=== PATIENT | female | born 1935 | race Caucasian/White ===

== ENCOUNTER 2018-10-14 17:46 | Inpatient (IN) | payer MEDICAID ==
[~2018-10-14] VITALS: Ht 160 cm; Wt 52.4 kg
[2018-10-14] MEDS ORDERED: LISINOPRIL20 MG ORAL (18:05)
--- NOTE | 2018-10-14 18:09 | NUR ---
ED Nurse Note: Pt wheeled in from home due to fracture on R hip. Pt fell this morning at home around 0800 while trying to get out of bed. Daughter stated she fell dizzy and fell. No head injury. No KO. Pain only with weight bearing. BP 176/74 tejinder, ERMD aware. Pt speaks Welsh. Will cont to monitor.
--- NOTE | 2018-10-14 18:25 | Emergency Room Report ---
History of Present Illness General Chief Complaint: Lower Extremity Injury Source: Family Member Present Illness HPI Patient fell yesterday. According to the daughter she's been dizzy on occasion. Since that time she's been unable to ambulate. The daughter took her to urgent care and they took an x-ray. They said that she had a small fracture of her hip. The daughter brought the patient to our facility here. The patient doesn't communicate and has dementia. The daughter denies hypertension, diabetes, heart disease or taking any medication at this time. Allergies: Coded Allergies: No Known Allergies (Unverified , 10/14/18) Patient History Limited by: medical condition Past Medical History: see triage record Social History: Denies: smoking Social History Narrative lives with daughter Last Menstrual Period: na Reviewed Nursing Documentation: PMH: Agreed; PSxH: Agreed Nursing Documentation-PMH Past Medical History: No History, Except For Hx Hypertension: Yes Review of Systems All Other Systems: limited Physical Exam Vital Signs Date Time Temp Pulse Resp B/P (MAP) Pulse Ox O2 Delivery O2 Flow Rate FiO2 10/14/18 18:00 98.1 85 16 149/86 98 Room Air Sp02 EP Interpretation: reviewed, normal General Appearance: no apparent distress, alert, other - Not speaking Head: normocephalic, atraumatic Eyes: bilateral eye normal inspection, bilateral eye PERRL, bilateral eye EOMI ENT: moist mucus membranes Neck: supple Respiratory: lungs clear, normal breath sounds Cardiovascular #1: regular rate, rhythm Cardiovascular #2: 2+ radial (R), 2+ dorsalis pedis (R) Gastrointestinal: non tender, soft, decreased bowel sounds Musculoskeletal: back normal, pelvis stable, tender - PROM R hip Neurologic: alert, DTRs symmetric, other - not communicate Psychiatric: depressed affect Skin: no rash, warm/dry Medical Decision Making Diagnostic Impression: Primary Impression: Fracture, intertrochanteric, right femur Qualified Codes: S72.144A - Nondisplaced intertrochanteric fracture of right femur, initial encounter for closed fracture ER Course Patient presents post fall yesterday with outside x-rays which reveal a right intertrochanteric fracture. Patient needs preoperative evaluation. Also I recommended analgesia. The daughter refuses analgesia at this time and also states that she is against having surgery. I stated that she would discuss this further with the admitting physician and also the orthopedic doctor. EKG without injury. Chest x-ray no infiltrates. Labs unremarkable. X-rays reviewed from outside facility. Intratrochanteric fracture with angulation. Daughter still refuses analgesia. Discussed that surgery would help her mother he will more quickly. She is still resistant to this idea. Patient admitted to the hospital for orthopedic evaluation and possibly surgery. Laboratory Tests Test 10/14/18 18:30 White Blood Count 10.3 K/UL (4.8-10.8) Red Blood Count 3.65 M/UL (4.20-5.40) L Hemoglobin 10.4 G/DL (12.0-16.0) L Hematocrit 31.3 % (37.0-47.0) L Mean Corpuscular Volume 86 FL (80-99) Mean Corpuscular Hemoglobin 28.4 PG (27.0-31.0) Mean Corpuscular Hemoglobin Concent 33.1 G/DL (32.0-36.0) Red Cell Distribution Width 13.1 % (11.6-14.8) Platelet Count 245 K/UL (150-450) Mean Platelet Volume 6.2 FL (6.5-10.1) L Neutrophils (%) (Auto) 87.2 % (45.0-75.0) H Lymphocytes (%) (Auto) 7.2 % (20.0-45.0) L Monocytes (%) (Auto) 5.3 % (1.0-10.0) Eosinophils (%) (Auto) 0.0 % (0.0-3.0) Basophils (%) (Auto) 0.3 % (0.0-2.0) Prothrombin Time 10.3 SEC (9.30-11.50) Prothrombin Time INR 1.0 (0.9-1.1) PTT 25 SEC (23-33) Sodium Level 142 MMOL/L (136-145) Potassium Level 4.4 MMOL/L (3.5-5.1) Chloride Level 104 MMOL/L (98-107) Carbon Dioxide Level 25 MMOL/L (21-32) Anion Gap 14 mmol/L (5-15) Blood Urea Nitrogen 25 mg/dL (7-18) H Creatinine 1.3 MG/DL (0.55-1.30) Estimate Glomerular Filtration Rate mL/min (>60) Glucose Level 134 MG/DL (74-106) H Calcium Level 9.1 MG/DL (8.5-10.1) Total Bilirubin 0.8 MG/DL (0.2-1.0) Aspartate Amino Transferase (AST) 19 U/L (15-37) Alanine Aminotransferase (ALT) 21 U/L (12-78) Alkaline Phosphatase 95 U/L (46-116) Total Protein 7.1 G/DL (6.4-8.2) Albumin 3.3 G/DL (3.4-5.0) L Globulin 3.8 g/dL Albumin/Globulin Ratio 0.9 (1.0-2.7) L EKG Diagnostic Results Rate: normal Rhythm: NSR ST Segments: no acute changes Rhythm Strip Diag. Results EP Interpretation: yes Rhythm: NSR, no PVC's, no ectopy Chest X-Ray Diagnostic Results Chest X-Ray Diagnostic Results : Chest X-Ray Ordered: Yes # of Views/Limited/Complete: 1 View Indication: Other EP Interpretation: Yes Interpretation: no consolidation, no effusion, no pneumothorax Impression: No acute disease Electronically Signed by: Electronically signed by Jaquan Collier MD Other X-Ray Diagnostic Results Other X-Ray Diagnostic Results : X-Ray ordered: pelvis and R femur (proximal) - outside films # of Views/Limited Vs Complete: 4 View Indication: Pain Interpretation: no soft tissue swelling, other - IT fx and angulation Impression: Other Electronically Signed by: Electronically signed by Jaquan Collier MD Last Vital Signs Date Time Temp Pulse Resp B/P (MAP) Pulse Ox O2 Delivery O2 Flow Rate FiO2 10/14/18 22:44 Room Air 10/14/18 18:00 98.1 85 16 149/86 98 Status: improved Disposition: ADMITTED INPATIENT Condition: Serious Jauqan Collier MD Oct 14, 2018 18:25
[2018-10-14] MEDS: Sodium Chloride 550 ML IV SCH ×2 (18:39→21:55)
[2018-10-14 18:53] LABS: ANION GAP 14 mmol/L (5-15); BLOOD UREA NITROGEN 25 mg/dL (7-18); CALCIUM 9.1 MG/DL (8.5-10.1); CARBON DIOXIDE 25 MMOL/L (21-32); CHLORIDE 104 MMOL/L (98-107); CREATININE 1.3 MG/DL (0.55-1.30); POTASSIUM 4.4 MMOL/L (3.5-5.1); SODIUM 142 MMOL/L (136-145)
--- NOTE | 2018-10-14 18:55 | NUR ---
ED Nurse Note: Pt refused to produce urine at this time, denied striaght cath, Purewick applied and on suction setting.
[2018-10-14 18:58] LABS: ALANINE AMINOTRANSFERASE 21 U/L (12-78); ALBUMIN 3.3 G/DL (3.4-5.0); ALBUMIN/GLOBULIN RATIO 0.9 (1.0-2.7); ALKALINE PHOSPHATASE 95 U/L (46-116); ASPARTATE AMINO TRANSFERASE 19 U/L (15-37); BILIRUBIN,TOTAL 0.8 MG/DL (0.2-1.0)
[2018-10-14 18:59] LABS: HEMATOCRIT 31.3 % (37.0-47.0); HEMOGLOBIN 10.4 G/DL (12.0-16.0); MEAN CORPUSCULAR VOLUME 86 FL (80-99); PLATELET COUNT 245 K/UL (150-450); RED BLOOD COUNT 3.65 M/UL (4.20-5.40); RED CELL DISTRIBUTION WIDTH 13.1 % (11.6-14.8); WHITE BLOOD COUNT 10.3 K/UL (4.8-10.8)
[2018-10-14 19:05] LABS: BASOPHILS % (AUTO) 0.3 % (0.0-2.0); LYMPHOCYTES % (AUTO) 7.2 % (20.0-45.0); MONOCYTES % (AUTO) 5.3 % (1.0-10.0); NEUTROPHILS % (AUTO) 87.2 % (45.0-75.0)
--- NOTE | 2018-10-14 21:45 | NUR ---
TRANSFER TO FLOOR: Patient transferred to Med Surg 301-2 as ordered, per MD Deon. Report given to CASSANDRA Ward. Patient in stable condition. Belongings list completed with receiving RN.
[2018-10-14] MEDS ORDERED: Morphine Sulfate 2mg/ml Inj(IV/IM USE ONLY) IVP PRN (22:00)
--- NOTE | 2018-10-14 22:05 | NUR ---
Received pt from ED. In stable condition. Complains of pain - grimacing, moaning-at the right hip which is fractured. Pt is Liberian speaking only. Bed is locked in lowest position, side rails x2. Bed alarm on and call light within reach.
[2018-10-14] MEDS: Enoxaparin 30mg Inj SUBQ SCH (22:33)
[2018-10-14] MEDS: Docusate 100mg cap ORAL SCH (22:33)
[2018-10-15] VITALS: BP 158/91
--- NOTE | 2018-10-15 | NUR ---
Nurse Note: PT removed IV from arm and disrobed herself. Remind pt to not cross legs- placed pillow between her knees as a reminder. Will continue to monitor.
[2018-10-15] MEDS: Sodium Chloride 550 ML IV SCH ×4 (01:35→12:35)
[2018-10-15 04:00] VITALS: BP 182/91
[2018-10-15 06:39] LABS: BASOPHILS % (AUTO) 0.3 % (0.0-2.0); EOSINOPHILS % (AUTO) 0.1 % (0.0-3.0); HEMATOCRIT 29.4 % (37.0-47.0); HEMOGLOBIN 9.6 G/DL (12.0-16.0); LYMPHOCYTES % (AUTO) 12.1 % (20.0-45.0); MEAN CORPUSCULAR VOLUME 86 FL (80-99); NEUTROPHILS % (AUTO) 78.5 % (45.0-75.0); PLATELET COUNT 236 K/UL (150-450); RED BLOOD COUNT 3.42 M/UL (4.20-5.40); RED CELL DISTRIBUTION WIDTH 13.1 % (11.6-14.8); WHITE BLOOD COUNT 7.6 K/UL (4.8-10.8)
[2018-10-15 07:08] LABS: ALANINE AMINOTRANSFERASE 16 U/L (12-78); ALBUMIN/GLOBULIN RATIO 0.8 (1.0-2.7); ALKALINE PHOSPHATASE 80 U/L (46-116); ANION GAP 10 mmol/L (5-15); ASPARTATE AMINO TRANSFERASE 18 U/L (15-37); BILIRUBIN,TOTAL 1.1 MG/DL (0.2-1.0); BLOOD UREA NITROGEN 23 mg/dL (7-18); CALCIUM 8.6 MG/DL (8.5-10.1); CARBON DIOXIDE 28 MMOL/L (21-32); CHLORIDE 105 MMOL/L (98-107); CHOLESTEROL 136 MG/DL (< 200); CREATININE 1.2 MG/DL (0.55-1.30); HDL CHOLESTEROL 48 MG/DL (40-60); SODIUM 143 MMOL/L (136-145); TRIGLYCERIDES 79 MG/DL (30-150)
[2018-10-15 07:09] LABS: BILIRUBIN,DIRECT 0.2 MG/DL (0.0-0.3)
--- NOTE | 2018-10-15 07:37 | NUR ---
HAND-OFF: Report given to Samra TRUJILLO.
--- NOTE | 2018-10-15 07:38 | NUR ---
NURSE NOTES: Pt received awake eating breakfast. Calm upon this writing . No facial grimace of pain . Current plan of care will be followed
[2018-10-15 08:00] VITALS: BP 191/90
[2018-10-15] MEDS: Pantoprazole Inj IV SCH ×2 (09:00→10:00)
[2018-10-15] MEDS: Docusate 100mg cap ORAL SCH ×3 (09:00→21:45)
--- NOTE | 2018-10-15 09:00 | NUR ---
NURSE NOTES: Family at bedside. Requested that database report writer speak to case management is regards to what time surgery will take place. Family made aware that consult was put in by charge nurse for Dr. Contreras. Upon this writing Dr. Warner has not returned call to facility. Pt remains in stable condition, no facial grimace of pain. Dr. Chavarria here talking to pt
--- NOTE | 2018-10-15 10:20 | NUR ---
NURSE NOTES: Pt currently sleeping. Family is at bedside answering questions for pt due to language barrier. Pt is relaxed does not appear to be in pain, daughter states she is okay. Assisted with bed alvarez earlier in shift. Urinated x one .
--- NOTE | 2018-10-15 11:32 | Diagnostic Imaging Report ---
Indication: Chest pain Technique: One view of the chest Comparison: none Findings: Lungs and pleural spaces are clear. The heart size is normal. The aorta is elongated tortuous and calcified. Heart size is upper limits normal. There may be a small hiatal hernia Impression: No acute process. Findings as noted
[2018-10-15 12:00] VITALS: BP 181/95
--- NOTE | 2018-10-15 12:18 | NUR ---
CASE MANAGEMENT:REVIEW 83 YR OLD FEMALE FROM HOME CC; FALL SI: RT HIP FRACTURE 98.0 85 16 149/86 98% ON RA H/H-10.4/31.3 BUN+25 ALB-3.3 IS: IVF@150/HR CHEST XRAY CT HIP : TO MED/SURG UNIT PLAN: ORTHO CONSULT PENDING
--- NOTE | 2018-10-15 13:21 | Cardiology Progress Note ---
Assessment/Plan Assessment/Plan The patient is seen and examined, full consult note will be dictated. Objective Last 24 Hour Vital Signs Date Time Temp Pulse Resp B/P (MAP) Pulse Ox O2 Delivery O2 Flow Rate FiO2 10/15/18 09:00 Room Air 10/15/18 08:00 98.9 90 18 191/90 (123) 99 10/15/18 06:35 Room Air 10/15/18 04:00 98.9 75 18 182/91 (121) 99 10/15/18 00:00 98.6 87 18 158/91 (113) 98 10/14/18 22:44 Room Air 10/14/18 21:45 98.1 65 16 149/86 98 Room Air 10/14/18 18:00 98.1 85 16 149/86 98 Room Air Intake and Output 10/14/18 10/15/18 19:00 07:00 Intake Total 30 ml Balance 30 ml Intake Oral 30 ml # Voids 1 Laboratory Tests Test 10/14/18 18:30 10/15/18 04:45 White Blood Count 10.3 K/UL (4.8-10.8) 7.6 K/UL (4.8-10.8) Red Blood Count 3.65 M/UL (4.20-5.40) L 3.42 M/UL (4.20-5.40) L Hemoglobin 10.4 G/DL (12.0-16.0) L 9.6 G/DL (12.0-16.0) L Hematocrit 31.3 % (37.0-47.0) L 29.4 % (37.0-47.0) L Mean Corpuscular Volume 86 FL (80-99) 86 FL (80-99) Mean Corpuscular Hemoglobin 28.4 PG (27.0-31.0) 28.1 PG (27.0-31.0) Mean Corpuscular Hemoglobin Concent 33.1 G/DL (32.0-36.0) 32.7 G/DL (32.0-36.0) Red Cell Distribution Width 13.1 % (11.6-14.8) 13.1 % (11.6-14.8) Platelet Count 245 K/UL (150-450) 236 K/UL (150-450) Mean Platelet Volume 6.2 FL (6.5-10.1) L 6.7 FL (6.5-10.1) Neutrophils (%) (Auto) 87.2 % (45.0-75.0) H 78.5 % (45.0-75.0) H Lymphocytes (%) (Auto) 7.2 % (20.0-45.0) L 12.1 % (20.0-45.0) L Monocytes (%) (Auto) 5.3 % (1.0-10.0) 9.0 % (1.0-10.0) Eosinophils (%) (Auto) 0.0 % (0.0-3.0) 0.1 % (0.0-3.0) Basophils (%) (Auto) 0.3 % (0.0-2.0) 0.3 % (0.0-2.0) Prothrombin Time 10.3 SEC (9.30-11.50) Prothromb Time International Ratio 1.0 (0.9-1.1) Activated Partial Thromboplast Time 25 SEC (23-33) Sodium Level 142 MMOL/L (136-145) 143 MMOL/L (136-145) Potassium Level 4.4 MMOL/L (3.5-5.1) 4.0 MMOL/L (3.5-5.1) Chloride Level 104 MMOL/L (98-107) 105 MMOL/L (98-107) Carbon Dioxide Level 25 MMOL/L (21-32) 28 MMOL/L (21-32) Anion Gap 14 mmol/L (5-15) 10 mmol/L (5-15) Blood Urea Nitrogen 25 mg/dL (7-18) H 23 mg/dL (7-18) H Creatinine 1.3 MG/DL (0.55-1.30) 1.2 MG/DL (0.55-1.30) Estimat Glomerular Filtration Rate mL/min (>60) mL/min (>60) Glucose Level 134 MG/DL (74-106) H 121 MG/DL (74-106) H Calcium Level 9.1 MG/DL (8.5-10.1) 8.6 MG/DL (8.5-10.1) Total Bilirubin 0.8 MG/DL (0.2-1.0) 1.1 MG/DL (0.2-1.0) H Aspartate Amino Transf (AST/SGOT) 19 U/L (15-37) 18 U/L (15-37) Alanine Aminotransferase (ALT/SGPT) 21 U/L (12-78) 16 U/L (12-78) Alkaline Phosphatase 95 U/L (46-116) 80 U/L (46-116) Total Protein 7.1 G/DL (6.4-8.2) 6.7 G/DL (6.4-8.2) Albumin 3.3 G/DL (3.4-5.0) L 3.0 G/DL (3.4-5.0) L Globulin 3.8 g/dL 3.7 g/dL Albumin/Globulin Ratio 0.9 (1.0-2.7) L 0.8 (1.0-2.7) L Hemoglobin A1c 5.9 % (4.3-6.0) Magnesium Level 1.9 MG/DL (1.8-2.4) Direct Bilirubin 0.2 MG/DL (0.0-0.3) Pro-B-Type Natriuretic Peptide 518 pg/mL (0-125) H Triglycerides Level 79 MG/DL (30-150) Cholesterol Level 136 MG/DL (< 200) LDL Cholesterol 79 mg/dL (<100) HDL Cholesterol 48 MG/DL (40-60) Cholesterol/HDL Ratio 2.8 (3.3-4.4) L Thyroid Stimulating Hormone (TSH) 1.031 uiU/mL (0.358-3.740) Alejandro Estrada MD Oct 15, 2018 13:21
--- NOTE | 2018-10-15 14:36 | History & Physical ---
History and Physical History & Physicial patient is seen and examined. Dictation completed on 10/15/18 Angie Chavarria MD Oct 15, 2018 14:36
--- NOTE | 2018-10-15 14:39 | General Progress Note ---
Assessment/Plan Status: stable Assessment/Plan Full Dictation in progress 1- Acute encephalopathy 2- HTN uncontrolled 3- Mechanical trauma, Fall. Right Troch Fx Plan: D/w Dr Hickman Will optimize BP medication Pre- Op test, including echo are requested Subjective Allergies: Coded Allergies: No Known Allergies (Unverified , 10/14/18) Objective Last 24 Hour Vital Signs Date Time Temp Pulse Resp B/P (MAP) Pulse Ox O2 Delivery O2 Flow Rate FiO2 10/15/18 09:00 Room Air 10/15/18 08:00 98.9 90 18 191/90 (123) 99 10/15/18 06:35 Room Air 10/15/18 04:00 98.9 75 18 182/91 (121) 99 10/15/18 00:00 98.6 87 18 158/91 (113) 98 10/14/18 22:44 Room Air 10/14/18 21:45 98.1 65 16 149/86 98 Room Air 10/14/18 18:00 98.1 85 16 149/86 98 Room Air Intake and Output 10/14/18 10/15/18 19:00 07:00 Intake Total 30 ml Balance 30 ml Intake Oral 30 ml # Voids 1 Laboratory Tests 10/14/18 18:30: White Blood Count 10.3, Red Blood Count 3.65L, Hemoglobin 10.4L, Hematocrit 31.3L, Mean Corpuscular Volume 86, Mean Corpuscular Hemoglobin 28.4, Mean Corpuscular Hemoglobin Concent 33.1, Red Cell Distribution Width 13.1, Platelet Count 245, Mean Platelet Volume 6.2L, Neutrophils (%) (Auto) 87.2H, Lymphocytes (%) (Auto) 7.2L, Monocytes (%) (Auto) 5.3, Eosinophils (%) (Auto) 0.0, Basophils (%) (Auto) 0.3, Prothrombin Time 10.3, Prothromb Time International Ratio 1.0, Activated Partial Thromboplast Time 25, Sodium Level 142, Potassium Level 4.4, Chloride Level 104, Carbon Dioxide Level 25, Anion Gap 14, Blood Urea Nitrogen 25H, Creatinine 1.3, Estimat Glomerular Filtration Rate , Glucose Level 134H, Calcium Level 9.1, Total Bilirubin 0.8, Aspartate Amino Transf (AST/ SGOT) 19, Alanine Aminotransferase (ALT/SGPT) 21, Alkaline Phosphatase 95, Total Protein 7.1, Albumin 3.3L, Globulin 3.8, Albumin/Globulin Ratio 0.9L 10/15/18 04:45: White Blood Count 7.6, Red Blood Count 3.42L, Hemoglobin 9.6L, Hematocrit 29.4L , Mean Corpuscular Volume 86, Mean Corpuscular Hemoglobin 28.1, Mean Corpuscular Hemoglobin Concent 32.7, Red Cell Distribution Width 13.1, Platelet Count 236, Mean Platelet Volume 6.7, Neutrophils (%) (Auto) 78.5H, Lymphocytes ( %) (Auto) 12.1L, Monocytes (%) (Auto) 9.0, Eosinophils (%) (Auto) 0.1, Basophils (%) (Auto) 0.3, Sodium Level 143, Potassium Level 4.0, Chloride Level 105, Carbon Dioxide Level 28, Anion Gap 10, Blood Urea Nitrogen 23H, Creatinine 1.2, Estimat Glomerular Filtration Rate , Glucose Level 121H, Calcium Level 8.6 , Total Bilirubin 1.1H, Aspartate Amino Transf (AST/SGOT) 18, Alanine Aminotransferase (ALT/SGPT) 16, Alkaline Phosphatase 80, Total Protein 6.7, Albumin 3.0L, Globulin 3.7, Albumin/Globulin Ratio 0.8L, Hemoglobin A1c 5.9, Magnesium Level 1.9, Direct Bilirubin 0.2, Pro-B-Type Natriuretic Peptide 518H, Triglycerides Level 79, Cholesterol Level 136, LDL Cholesterol 79, HDL Cholesterol 48, Cholesterol/HDL Ratio 2.8L, Thyroid Stimulating Hormone (TSH) 1.031 Height (Feet): 5 Height (Inches): 3.00 Weight (Pounds): 117 Angie Chavarria MD Oct 15, 2018 14:39
[2018-10-15] MEDS ORDERED: Metoprolol Succinate XL 50mg tab ORAL SCH (14:45)
--- NOTE | 2018-10-15 14:50 | NUR ---
NURSE NOTES: Dr Chavarria phoned due to pt elevated blood pressure. Pt daughter at bedside stated " I do not want her to have chemicals, I treat her with lemon and mint" Referred to charge nurse . Daughter agreed for mother to take medication benefits required to be examined. Benefits of IV fluids explained. Daughter verbalized understanding of risk of possible delay of surgery for hip repair. Orders placed pending acknowledgement Addendum: 10/15/18 at 1628 by Zuleika Almendarez RN explained error in entry for examined
--- NOTE | 2018-10-15 15:19 | Consultation ---
Consult Note Consult Note Patient seen/evaluated. Right Hip IT fracture. spoke with the patient and the family and they would like to proceed with the recommended surgery. Consent was obtained. Full consult dictated. Ambrocio Hickman MD Oct 15, 2018 15:19
--- NOTE | 2018-10-15 15:26 | NUR ---
NURSE NOTES: Gave the following orders for elevated blood pressure. Metoprolol 25 mg po bid, lasix 40 mg iv q4 hours prn for systolic blood pressure greater than 160, clonidine 0.1 mg po prn q 4 hours for sysytolic blood pressure greater than 175. Pt is able to eat NPO at midnight procedure to be done at 1 pm tomorrow. also ordered D5 1/2 ns at 75 cc/hr . charge nurse made aware of new orders
[2018-10-15] MEDS: D5 1/2NS 1,000 ML IV SCH ×2 (15:30→21:52)
[2018-10-15 16:00] VITALS: BP 178/80
[2018-10-15] MEDS: Metoprolol 25mg tab ORAL SCH (16:20)
--- NOTE | 2018-10-15 16:29 | NUR ---
NURSE NOTES: Fruit Grader entered room to give IV fluids daughter is at bedside refused sign writer letterer or painter to start IV " I do not believe that is necessary referring to the fluids. " " That entire bag is sugar" sign writer letterer or painter explained the purpose and benefits of IV with refusal. Blood pressure medication given , required pt teaching to for use of blood pressure medicine. Risk of high blood pressure medicine explained. " Why is it high" Fruit Grader asked daughter if blood pressure is taken at home? Daughter replied " No; it has been over a year that I give her lemon and mint' ; and she is fine" sign writer letterer or painter informed her it is difficult to establish a baseline since her blood pressure has not been taken over a year. daughter then stated " Sometime" but I have not in a long time' sign writer letterer or painter informed pt that pain can also raise blood pressure. Pt qued by daughter nodded head no. Face is relaxed no facial grimace of pain.
--- NOTE | 2018-10-15 17:27 | NUR ---
NURSE NOTES: Daughter left bedside signed consent for surgery upon exit. Immediatly pt attempted to get out of bed crycom used to translate to pt not to attempt to get out of bed. Required plus 2 assistance to clean incontinent episode of urine. Call light in reach
--- NOTE | 2018-10-15 19:30 | NUR ---
NURSE NOTES:Patient received from Zuleika RNolberto .patient in bed asleep at this time . no s/s of distress noted . RFA g # 24 patent and intact . Patient incontinent of urine keep clean and dry at all times ..bed alarm on . will continue to monitor.
[2018-10-15 20:00] VITALS: BP 99/68
--- NOTE | 2018-10-15 20:00 | NUR ---
NURSE NOTES: Pt to receive d5 ns not NS per Dr Chavarria NS will increase pt blood pressure, made aware of both IV orders ,
--- NOTE | 2018-10-15 20:24 | NUR ---
NURSE NOTES: Dr Chavarria phoned for clarification of iv fluid orders made aware that pt daughter refused iv fluids. DR. CHAVARRIA gave instructions to inform daughter that she could sign an AMA and that the surgery could possibly be cancelled. Daughter phoned and she was informed on what the Dr Leighann Chavarria statement about cancelling surgery, Daughter agreed to have fluids. Required education on importance of iv fluids. also informed that pt required education on purpose of blood pressure medication stating that she treats her mother blood pressure with mint and lemon. Pt is currently sleeping. Family required to be called to calm pt. Call light in reach bed is in safe position, oncoming nurse endorsed fluids , as well as statements made by Dr. Chavarria
--- NOTE | 2018-10-15 20:42 | NUR ---
HAND-OFF: Report given to Angela TRUJILLO.
--- NOTE | 2018-10-15 21:30 | History and Physical Report ---
DATE OF ADMISSION: 10/14/2018 SOURCE OF INFORMATION: Patient and EMR HISTORY OF PRESENT ILLNESS: The patient is a pleasant 83-year-old female who presented with pain in the right lower extremities. REVIEW OF SYSTEMS: All 12 elements of review of systems reviewed. No shortness of breath. No chest pain. No loss of consciousness reported. No abdominal pain. No nausea. PAST SURGICAL HISTORY: Denies. PAST MEDICAL HISTORY: Hypertension, otherwise denies. ALLERGIES: NKDA. SOCIAL HISTORY: The patient denies use of illicit drug abuse, smoking, or alcohol abuse. PHYSICAL EXAMINATION: VITAL SIGNS: Blood pressure 150/80, temperature 98.2, pulse oximetry 98% on room air. HEAD AND NECK: Atraumatic and normocephalic. CHEST: Clear to auscultation. HEART: S1 and S2. Regular rate and rhythm. ABDOMEN: Soft. No organomegaly. MUSCULOSKELETAL: Positive for decreased range of motion in the right lower extremity. NEUROLOGY: Awake, alert, and oriented x3. LABORATORY AND DIAGNOSTIC DATA: Dated September shows WBC 10.3, hemoglobin 10.4, platelets 245. Sodium 142, potassium 4.4, BUN 25, and creatinine 1.3. Liver function tests normal. INR 1. ASSESSMENT: 1. Right-sided intertrochanteric fracture. 2. Hypertension. 3. Acute encephalopathy-probable diagnosis. 4. Mechanical fall and right intertrochanteric fracture. 5. Noncompliance with medical advice. 6. GI and DVT prophylaxis. 7. The patient initially refused proceeding with surgery. COMMENT: The time of this dictation does not reflect the actual time of encounter. Angie Chavarria M.D. DR: Aimee JOB#: [id number] CC: ROXANA
[2018-10-15] MEDS: Enoxaparin 30mg Inj SUBQ SCH (22:08)
[2018-10-16] VITALS (12 sets, daily range): BP systolic 106–182; BP diastolic 61–90
--- NOTE | 2018-10-16 00:15 | Consultation ---
DATE OF CONSULTATION: 10/15/2018 ORTHOPEDIC CONSULTATION CONSULTING PHYSICIAN: Ambrocio Hickman M.D. REQUESTING PHYSICIAN: Angie Chavarria M.D. REASON FOR CONSULTATION: Right intertrochanteric fracture. BRIEF HISTORY: The patient is a pleasant 83-year-old female who apparently had a mechanical fall yesterday at her home. She apparently fell down and her daughter found her 2 or 3 hours later. She does recall the fall. She had immediate onset of pain. X-rays were obtained at an outside facility and it showed a displaced intertrochanteric fracture. She was admitted to [facility] for definitive treatment. The patient has history of hypertension. Prior to this fall, the patient was ambulatory around the house. She reportedly was not using any assistive device on a routine basis. PAST MEDICAL HISTORY: Significant for hypertension. PAST SURGICAL HISTORY: None. MEDICATIONS: Please see chart. ALLERGIES: No known drug allergies. SOCIAL HISTORY: She has a very supportive daughter who is here with her. She is able to communicate somewhat, but she has some evidence of dementia. PHYSICAL EXAMINATION: GENERAL: Examination of the patient today reveals she is a very pleasant lady, cooperative with examination. EXTREMITIES: Examination of the right leg reveals that it is shortened and externally rotated. She has pain with the right hip. NEUROLOGICAL: Intact distally. SKIN: There is no skin breakdown. DIAGNOSTIC DATA: X-ray from outside Imaging is reviewed. This showed that there is a displaced intertrochanteric fracture with varus deformity. IMPRESSION: Right hip displaced intertrochanteric fracture with varus deformity in an 83-year-old ambulatory female. PLAN: At this time, I had discussion with the patient. I explained to her my findings. I recommend proceeding with right hip open reduction and internal fixation with intramedullary device. Risks, benefits, and complications of surgery were fully discussed with her. The risk of infection, bleeding, neurovascular complication were discussed with her. She understands the nature of surgery and complications associated with it, and would like to proceed with it. I discussed this fully with her daughter who is in agreement. Consent will be signed and we will proceed with surgery pending medical clearance. It should be noted that the patient has some hypertension that needs to be controlled. A 2D echo had been performed and the results show good ejection fraction and no wall motion abnormalities. All questions were answered. Ambrocio Hickman M.D. DR: Alyssia JOB#: [id number] CC: ROXANA
[2018-10-16] MEDS: Metoprolol 25mg tab ORAL SCH ×2 (04:08→16:00)
--- NOTE | 2018-10-16 06:59 | Pre-Procedure Note/Attestation ---
Pre-Procedure Note/Attestation Complete Prior to Procedure Planned Procedure: right Procedure Narrative: rt hip orif Indications for Procedure Pre-Operative Diagnosis: rt hip fracture Attestation I attest that I discussed the nature of the procedure; its benefits; risks and complications; and alternatives (and the risks and benefits of such alternatives ), prior to the procedure, with the patient (or the patient's legal training representative). I attest that, if there was a reasonable possibility of needing a blood transfusion, the patient (or the patient's legal training representative) was given the [facility] standardized written summary, pursuant to the Chad Umer Blood Safety Act ([place] Health and Safety Code # 1645, as amended). I attest that I re-evaluated the patient just prior to the surgery and that there has been no change in the patient's H&P, except as documented below: none Ambrocio Hickman MD Oct 16, 2018 06:59
--- NOTE | 2018-10-16 07:20 | NUR ---
NURSE NOTES: Endorsed to FROYLAN Zavala Consent for blood transfusion and pre op check list.
--- NOTE | 2018-10-16 07:23 | NUR ---
NURSE NOTES: Pt currently sleeping. NPO for pending procedure. Call light is in reach. Safety measures will be reinforced, due to previous bx of attempting to get out of bed. Bed alarm on, bed in is safe position
--- NOTE | 2018-10-16 07:45 | NUR ---
HAND-OFF: Report given to Zuleika Zavala
[2018-10-16] MEDS: Docusate 100mg cap ORAL SCH ×4 (09:00→20:53)
[2018-10-16] MEDS: Pantoprazole Inj IV SCH (09:00)
--- NOTE | 2018-10-16 09:30 | NUR ---
NURSE NOTES: Pt daughter arrived outgoing nurse endorsed blood transfusion consent. Hedge Fund Accountant spoke to daughter in regards to receiving under emergency circumstances, daughter refused risk and benefits explained.
--- NOTE | 2018-10-16 10:00 | NUR ---
NURSE NOTES: Dr. Chavarria phoned made aware of pt blood pressure NPO status and surgery schedule change . Original proposed time was for 1 pm or transport arrive while race and sports book writer was speaking to Dr. Chavarria pt blood pressure is not stable therefore Dr. Chavarria did not clear her for surgery. Dr Chavarria instructed not to send pt down. Pt was given lasix and fluids held. blood pressure prior to Lasix 40 mg was 182 / 90 blood pressure retaken at 171/89 . Per report of daughter pt baseline is 180 , per pt daughter " That is good for her , she feels fine" Risk of elevated blood pressure explained. Refrigerator Mover informed daughter that blood pressure will be retaken shortly. Per report of outgoing nurse blood systolic blood pressure varied from 99 systolic to 135 systolic . Pt denies headache or dizziness. Call light is in reach daughter at bedside.
--- NOTE | 2018-10-16 10:12 | NUR ---
CASE MANAGEMENT:REVIEW 10/16/18 SI: RT HIP FRACTURE 98.5 78 17 132/63 97% ON RA IS: SCHEDULED FOR ORIF IVF@75/HR LOPRESSOR PO Q12 IV PROTONIX QD LOVENOX SQ Q24 : TO MED/SURG [facility]
--- NOTE | 2018-10-16 11:14 | NUR ---
NURSE NOTES: Blood pressure retaken currently 153/77 pulse is 58. Charge Nurse made aware. OR nurse made aware Dr. Chavarria instructions not to send pt to OR 2 to unstable blood pressure. OR nurse will like follow up if surgery is cancelled or postponed . Will follow up with Dr. Chavarria
--- NOTE | 2018-10-16 12:33 | NUR ---
NURSE NOTES: Dr Chavarria phone Gave orders for Clonidine 0.1 mg now for elevated blood pressure 169/86 Charge Nurse made aware
--- NOTE | 2018-10-16 12:57 | NUR ---
NURSE NOTES: Pt received Clonidine 0.1 mg for elevated blood pressure gave orders for medication to stabilize her blood pressure prior to rt hip repair. remains at bed side. Or informed that daughter refused blood transfusion. Su will send up document for refusal of blood transfusion. Dr Mina gave clearance
--- NOTE | 2018-10-16 13:08 | NUR ---
NURSE NOTES: Pt departed floor accompanied by OR transport, and her daughter she is in stable condition. No facial grimace pain, body is relaxed . No signs of distress.
[2018-10-16] MEDS ORDERED: D5 1/2NS w/KCl 20mEq 1,000 ML IV SCH (13:56)
[2018-10-16] MEDS ORDERED: HYDROmorphone 1mg/ml Carpuject SUBQ PRN (14:00)
[2018-10-16] MEDS ORDERED: ceFAZolin sod 2 GM in D5W 110 ML IV SCH (14:00)
[2018-10-16] MEDS ORDERED: HYDROcodone/Acetamin 7.5/325 tab ORAL PRN ×2 (14:00→15:00)
[2018-10-16] MEDS ORDERED: Milk of Magnesia 30ml Ud ORAL PRN (14:00)
[2018-10-16] MEDS ORDERED: Bacitracin 50000 Units Vial ONE (14:02)
[2018-10-16] MEDS ORDERED: Bupivacaine 0.5% Inj 30 ml vial INJ ONE (14:10)
[2018-10-16] MEDS ORDERED: Morphine Sulfate PF 10 ML ONE (14:10)
[2018-10-16] MEDS ORDERED: Propofol 200mg/20ml IV ONE (14:16)
[2018-10-16] MEDS ORDERED: Dexamethasone 4mg/ml vial ONE (14:16)
[2018-10-16] MEDS ORDERED: Midazolam 2mg/2ml Inj ONE (14:23)
[2018-10-16] MEDS ORDERED: Adenosine 6mg/2ml Inj ONE (14:24)
--- NOTE | 2018-10-16 14:28 | NUR ---
NURSE NOTES: Upon this writing pt has not returned from ER
[2018-10-16] MEDS ORDERED: Sterile Water Irrig 1000ml IRRIG ONE (14:30)
[2018-10-16] MEDS ORDERED: Lidocaine 1% MPF 10mg/ml 5ml ONE (14:30)
[2018-10-16] MEDS ORDERED: NS Irrig 1000ml ONE (14:30)
[2018-10-16] MEDS ORDERED: LR 1000ml ONE (14:30)
[2018-10-16] MEDS ORDERED: LR 1000ml 1,000 ML IVLG SCH (14:48)
[2018-10-16] MEDS ORDERED: Hydromorphone 0.5mg/0.5ml inj IVP PRN (15:00)
[2018-10-16] MEDS ORDERED: Meperidine 50mg/ml Inj(FOR RIGORS ONLY) IVP PRN (15:00)
[2018-10-16] MEDS ORDERED: HYDROcodone/Acetamin 5/325 tab ORAL PRN (15:00)
[2018-10-16] MEDS ORDERED: Midazolam 2mg/2ml Inj IVP PRN (15:00)
[2018-10-16] MEDS ORDERED: oxyCODONE HCL/Acetaminophen 5/325mg ORAL PRN (15:00)
[2018-10-16] MEDS ORDERED: DiphenhydrAMINE 50mg/ml Inj IVP PRN (15:00)
[2018-10-16] MEDS ORDERED: Atropine Sulfate 0.4mg/ml inj IVP PRN (15:00)
[2018-10-16] MEDS ORDERED: fentaNYL 100 mcg/2 mL IV PRN (15:00)
[2018-10-16] MEDS ORDERED: Metoclopramide 10mg/2ml Inj IVP PRN (15:00)
[2018-10-16] MEDS ORDERED: LORazepam Inj 2mg/ml 1ml IV PRN (15:00)
[2018-10-16] MEDS ORDERED: ePHEDrine 50mg/ml Inj ONE (15:01)
--- NOTE | 2018-10-16 15:06 | Anethesia Preoperative Eval ---
Anesthesia Pre-op PMH/ROS General Date of Evaluation: Oct 16, 2018 Time of Evaluation: 14:18 Anesthesiologist: Keturah ASA Score: ASA 4 Mallampati Score Class I : Soft palate, uvula, fauces, pillars visible Class II: Soft palate, uvula, fauces visible Class III: Soft palate, base of uvula visible Class IV: Only hard plate visible Mallampati Classification: Class II Surgeon: Vick Diagnosis: R Hip Fx Surgical Procedure: ORIF R Hip Anesthesia History: none Family History: no anesthesia problems Allergies: Coded Allergies: No Known Allergies (Unverified , 10/14/18) Medications: see eMAR Patient NPO?: Yes NPO Date: Oct 16, 2018 NPO Time: 0000 Past Medical History Cardiovascular: Reports: HTN Neurologic/Psychiatric: Reports: dementia Anesthesia Pre-op Phys. Exam Physician Exam Last Vital Signs Date Time Temp Pulse Resp B/P (MAP) Pulse Ox O2 Delivery O2 Flow Rate FiO2 10/16/18 12:49 169/86 10/16/18 12:00 98.0 63 20 97 10/16/18 09:00 Room Air Constitutional: NAD Neurologic: CN 2-12 intact Cardiovascular: RRR Respiratory: CTA Gastrointestinal: S/NT/ND Airway Exam Mallampati Score: Class II MO: limited ROM: limited Teeth: missing, intact Anesthesia Pre-op A/P Risk Assessment & Plan Assessment: ASA 4 Plan: GA, Spinal, SED Status Change Before Surgery: No Pre-Antibiotics Dru Gram Ancef IV Given Within 1 Hr of Incision: Yes Time Given: 14:31 Adonis Rebollar MD Oct 16, 2018 15:06
--- NOTE | 2018-10-16 15:11 | Immediate Post-Op Evaluation ---
Immediate Post-Op Evalulation Immediate Post-Op Evalulation Procedure: ORIF R Hip Date of Evaluation: Oct 16, 2018 Time of Evaluation: 15:54 IV Fluids: 500 LR Blood Products: 0 Estimated Blood Loss: 50 Urinary Output: 0 Blood Pressure Systolic: 106 Blood Pressure Diastolic: 66 Pulse Rate: 86 Respiratory Rate: 16 O2 Sat by Pulse Oximetry: 100 Temperature (Fahrenheit): 97.8 Pain Score (1-10): 0 Nausea: No Vomiting: No Complications 0 Patient Status: awake, reacts, patent, none Hydration Status: adequate Dru Gram Ancef IV Given Within 1 Hr of Incision: Yes Time Given: 14:31 Adonis Rebollar MD Oct 16, 2018 15:11
--- NOTE | 2018-10-16 15:17 | NUR ---
NURSE NOTES: Pt remains off unit
--- NOTE | 2018-10-16 15:23 | NUR ---
*-* INSURANCE *-* ALL CLINICALS HAVE BEENF AXED TO: [facility] [place] [phone] / DEPT FX; [phone]..............REVIEW BLUE CROSS REF# [id number] FX: [phone]...
--- NOTE | 2018-10-16 15:25 | Brief Operative Note ---
Immediate Post Operative Note Operative Note Chief Complaint: rt hip fracture Pre-op Diagnosis: rt hip fracture Procedure: rt hip orif Post-op Diagnosis: same as pre-op Findings: consistent w/pre-op dx studies Surgeon: md rola Lawn Service Worker: nabil ferrell Anesthesiologist: md daniela Anesthesia: general Specimen: none Complications: none Condition: stable Fluids: ns Estimated Blood Loss: minimal Drains: none Implant(s) used?: Yes - Nicci Matta Oct 16, 2018 15:25
[2018-10-16] MEDS ORDERED: NS Irrig 1000ml IRRIG ONE (15:56)
--- NOTE | 2018-10-16 16:00 | NUR ---
NURSE NOTES: Pt in stable condition no complaints of pain. Still does not have sensation to lower extremity. Breathing with use of nasal canula a 4 liters. blood pressure is stable 101/71 pulse 71 . Daughter at bedside
--- NOTE | 2018-10-16 16:14 | Diagnostic Imaging Report ---
INDICATION: Pain, intraoperative TECHNIQUE: Intraoperative imaging Fluoroscopy time: 39.6 seconds Total dose: 0.30558 mGym2 Total number of images: 5 COMPARISON: None FINDINGS: Intraoperative images document surgical repair of intertrochanteric fracture using compression screw and medullary sumanth IMPRESSION: Intraoperative imaging, as described
--- NOTE | 2018-10-16 16:31 | General Progress Note ---
Assessment/Plan Assessment/Plan S: I am doing ok O: appears comfortable, denies chest pain, no sob, ,PHYSICAL EXAMINATION: HEAD AND NECK: Atraumatic and normocephalic. CHEST: Clear to auscultation. HEART: S1 and S2. Regular rate and rhythm. ABDOMEN: Soft. No organomegaly. MUSCULOSKELETAL: Positive for decreased range of motion in the right lower extremity. NEUROLOGY: Awake, alert, and oriented x3. Meds : reviewed Echo from October 15, ASSESSMENT: 1. Right-sided intertrochanteric fracture. 2. Hypertension: Uncontrolled 3. Acute encephalopathy-probable diagnosis. 4. Mechanical fall and right intertrochanteric fracture. 5. Noncompliance with medical advice. 6. GI and DVT prophylaxis. 7. The patient initially refused proceeding with surgery. Plan: Patient Medically stable for planned surgery, no medical contraindication Advised the daughter, regarding the potential harm by holding the ordered medication, including BP meds to patient/mother Will optimize BP medication Pre- Op test, including echo are revewied Subjective Allergies: Coded Allergies: No Known Allergies (Unverified , 10/14/18) Objective Last 24 Hour Vital Signs Date Time Temp Pulse Resp B/P (MAP) Pulse Ox O2 Delivery O2 Flow Rate FiO2 10/16/18 16:05 70 17 139/73 100 Simple Mask 6 10/16/18 15:53 76 13 139/70 100 Simple Mask 6 10/16/18 15:48 77 18 122/74 100 Simple Mask 6 10/16/18 15:43 97.8 86 16 106/66 100 Simple Mask 6 10/16/18 15:39 86 16 100 10/16/18 12:49 169/86 10/16/18 12:00 98.0 63 20 169/86 (113) 97 10/16/18 09:00 Room Air 10/16/18 08:00 97.7 61 20 182/90 (120) 97 10/16/18 04:08 78 132/63 10/16/18 04:00 98.5 78 17 132/63 (86) 97 10/16/18 00:00 98.4 72 16 135/69 (91) 96 10/15/18 21:00 Room Air 10/15/18 20:00 98.6 63 20 99/68 (78) 97 10/15/18 19:22 98.0 Intake and Output 10/15/18 10/16/18 19:00 07:00 Intake Total 120 ml 780 ml Output Total 450 ml Balance 120 ml 330 ml Intake Oral 120 ml 180 ml IV Total 600 ml Output Urine Total 450 ml # Voids 2 3 Height (Feet): 5 Height (Inches): 3.00 Weight (Pounds): 116 Angie Chavarria MD Oct 16, 2018 16:31
--- NOTE | 2018-10-16 17:00 | NUR ---
NURSE NOTES: Pt remains in stable condition, currently sleeping , tolerated clear liquid diet no nausea or vomiting noted or reported . Daughter at bedside able to translate mothers needs. Pt has sensation to fingers able to wiggle fingers no sensation of numbness, or complaints of light headedness
--- NOTE | 2018-10-16 17:04 | Diagnostic Imaging Report ---
Indication: Pain, status post fall, postoperative hip pinning Technique: One view of the pelvis Comparison: Intraoperative digital images of earlier the same day Findings: Postoperative pelvis demonstrates medullary sumanth and compression screw reducing intertrochanteric fracture which appears well aligned. Retained air from the surgical exposure is seen in the soft tissues. The joint spaces are preserved. No definite pelvic fracture demonstrated Impression: Postoperative right hip. No unusual features
[2018-10-16] MEDS: D5 1/2NS w/KCl 20mEq 1,000 ML IV SCH (18:32)
--- NOTE | 2018-10-16 19:27 | NUR ---
HAND-OFF: Report given to .hema TRUJILLO
--- NOTE | 2018-10-16 19:27 | NUR ---
NURSE NOTES:Patient received in bed Farzi speaking . Daughter at bedside .patient on 4 L VIA N/C in placed . patient denies of pain at this time . no n/v / no sob noted .LFA g#20 D5 1/2 NS with 20 meq at 75 cc /hr infusing well . left hip surgical dressing C/D/I/ patient encourage to use Is . patient tolerated well . patient on scds in placed . call light within reach . bed in low position at all times. will continue to monitor. Addendum: 10/17/18 at 0136 by BC DAMON LVN patient Anguillan speaking.
--- NOTE | 2018-10-16 21:25 | Cardiology Report ---
APPROVED REPORT EXAM: Two-dimensional and M-mode echocardiogram with Doppler and color Doppler. INDICATION PRE-OP M-Mode DIMENSIONS IVSd1.2 (0.7-1.1cm)Left Atrium (MM)3.7 (1.6-4.0cm) LVDd4.2 (3.5-5.6cm)Aortic Root3.5 (2.0-3.7cm) PWd1.0 (0.7-1.1cm)Aortic Cusp Exc.2.1 (1.5-2.0cm) IVSs1.5 cm LVDs2.4 (2.5-4.0cm) PWs1.1 cm Normal left ventricular chamber size, systolic function and wall motion. Left ventricular ejection fraction estimated to be 60-65%. Mild left ventricular hypertrophy by 2-D. No evidence of pericardial effusion. All other cardiac chamber sizes are within normal limits. Focal aortic valve sclerosis with adequate cusp excursion. Thickened mitral valve leaflets with normal excursion. Mitral annulus and aortic root calcification. Pulmonic valve not well visualized. IVC at normal size with physiologic collapse . A color flow and spectral Doppler study was performed and revealed: Mild aortic insufficiency . Mitral diastolic velocities suggest reduced left ventricular relaxation c/w mild LV diastolic dysfunction (Grade I ) Trace mitral regurgitation. Mild tricuspid regurgitation. Tricuspid systolic velocities suggests peak right ventricular systolic pressure of 37 mmHg,consistent with mild pulmonary hypertension .
--- NOTE | 2018-10-16 21:29 | Cardiology Report ---
APPROVED REPORT EKG Measurement Heart [id number] Normal sinus rhythm Normal ECG
[2018-10-16] MEDS: Enoxaparin 30mg Inj SUBQ SCH (22:04)
[2018-10-16] MEDS: ceFAZolin sod 2 GM in D5W 110 ML IV SCH (22:06)
[2018-10-17] VITALS: BP 125/70
--- NOTE | 2018-10-17 01:33 | NUR ---
NURSE NOTES :Patient removed her surgical dressing in right hip . dressing change done . Bernardo GIANG notified and aware. Addendum: 10/17/18 at 0717 by BC DAMON LVN right hip dressing change 4x4 and Tegaderm per MD VALDEZ
--- NOTE | 2018-10-17 01:45 | Operative Note - Dictated ---
DATE OF OPERATION: 10/16/2018 PREOPERATIVE DIAGNOSIS: Right hip intertrochanteric fracture with displacement. POSTOPERATIVE DIAGNOSIS: Right hip intertrochanteric fracture with displacement. PROCEDURE: Right hip open reduction and internal fixation using a short gamma nail, 125-degree neck with a 100 mm lag screw. SURGEON: Ambrocio Hickman M.D. CORE MACHINE TENDER: Nicci Leyva PA-C. ANESTHESIOLOGIST: Adonis Rebollar M.D. ANESTHESIA: Spinal anesthesia. ESTIMATED BLOOD LOSS: Less than 50 mL. COMPLICATIONS: None. BRIEF HISTORY: The patient is a very pleasant 83-year-old female who sustained a mechanical fall and had a right hip intertrochanteric fracture. After full discussion of risks and benefits of surgery with the patient and her daughter and after discussion of risks of infection, bleeding, neurovascular complication, possibility of malunion, possibility of nonunion, possibility of need for further surgery, and other complications that may arise, she opted for surgical treatment as described above. OPERATIVE PROCEDURE: The patient was brought to the operating room table and was placed supine. All pressure points were well-padded. Spinal anesthesia was induced and the patient was placed in a fracture table with the right leg in traction and left leg in well-leg chavez. All pressure points were well-padded. The traction was applied and the image intensifier was brought in and the fracture configuration was visualized. The fracture was reduced near anatomically with some traction and internal rotation. This was checked in AP and lateral. Subsequently, the right leg was prepped and draped in usual sterile fashion and time-out was performed and a 3-cm incision was made proximal to the greater trochanter. The incision was taken through the subcutaneous tissue and gluteal fascia. The tip of the trochanter could be palpated. At this point, a guidewire was placed through the trochanter into the distal fragment. The position was checked on AP and lateral, and appeared to be perfect. An entry hole was obtained using a reamer and a short 125-degree nail was applied without any complication. Once the nail was well-seated, using the guide, a pin was placed through the lateral cortex of the femur through the nail into the neck into the head. This was central-central on AP and lateral views. At this point, reaming was performed all the way to subchondral bone and a 100 mm lag screw was applied. The length was excellent. The fracture was then compressed using the compression device. At this point, the locking screw was then locked-in on top of the lag screw and then turned back by half a turn to allow for sliding. At this point, the outrigger guide was removed and another set of x-rays were obtained, which showed perfect alignment and great reduction in the fracture. At this point, x-rays were obtained and it appeared that the fracture reduction and alignment of the hardware as well as the bones were in excellent position. The insertion guide was then removed without any complication. Final x-rays were obtained, AP and lateral view, and it showed that there was no fracture distal to the nail and the hardware was in excellent position, fracture reduced anatomically. At this point, wounds were thoroughly irrigated using copious amount of fluid. The gluteal fascia was closed using #1 Vicryl suture. Subcutaneous tissue was closed using 2-0 Vicryl suture. Skin was closed using 3-0 Monocryl suture. All lap counts and instrument counts were correct. Ambrocio Hickman M.D. DR: Alyssia JOB#: [id number] CC: ROXANA
[2018-10-17 04:00] VITALS: BP 152/74
--- NOTE | 2018-10-17 04:00 | Consultation ---
DATE OF CONSULTATION: 10/15/2018 CARDIOLOGY CONSULTATION CONSULTING PHYSICIAN: Alejandro Estrada M.D. REFERRING PHYSICIAN: Angie Chavarria M.D. REASON FOR CONSULTATION: Preoperative cardiac clearance for noncardiac surgery. HISTORY OF PRESENT ILLNESS: The patient is a very unfortunate 83-year-old [place] lady who sustained an episode of fall and trouble with ambulation. According to the patient's daughter, she has had occasional dizziness. It is not clear whether the patient had syncopal event, but the daughter mentioned that she was taken to urgent care and an x-ray of the hip showed presence of a small fracture. According to the patient's daughter, there is no prior history of coronary artery disease, diabetes mellitus, hypertension, congestive heart failure, and cardiac arrhythmias. Apparently, the patient was capable of walking and performing her activities of daily living without any limitations. PAST MEDICAL HISTORY: Hypertension. ALLERGIES: No known drug allergies. MEDICATIONS: Lisinopril 20 mg p.o. daily. PAST SURGICAL HISTORY: None. SOCIAL HISTORY: Denies any tobacco, alcohol, or illicit drug use. FAMILY HISTORY: No premature coronary artery disease in first-degree relatives. REVIEW OF SYSTEMS: HEENT: Denies any headache, diplopia, or blurred vision. CONSTITUTIONAL: Denies any fever, chills, night sweats, or weight loss. CARDIOVASCULAR: Some dizziness occasionally, but no chest pain, shortness breath, PND, or orthopnea. There was no loss of consciousness. PULMONARY: Denies any cough, hemoptysis, or wheezing. GASTROINTESTINAL: Denies any nausea, vomiting, diarrhea, constipation, abdominal pain, or GI bleeding. GENITOURINARY: Denies any hematuria, dysuria, or incontinence. NEUROLOGY: Denies any motor dysfunction, sensory deficit, or altered speech. MUSCULOSKELETAL: Trouble bearing weight with severe pain in the right leg. PHYSICAL EXAMINATION: VITAL SIGNS: Blood pressure at the time of arrival to the hospital was 149/86, pulse of 85, respirations of 16, O2 saturation 98% on room air, and temperature 98.1 degrees Fahrenheit. GENERAL: The patient is a very unfortunate 83-year-old lady who was in no apparent respiratory distress. Alert and oriented x4. HEENT: Atraumatic and normocephalic. Anicteric. Pupils are equal, round, and reactive to light and accommodation. Extraocular muscles intact. NECK: JVP less than 5 cm. No carotid bruit. Carotid upstrokes 2+ bilaterally. CVS: Normal S1 and S2. Regular rate and rhythm. No murmurs, gallops, or rubs. PMI is at fourth intercostal space at the midclavicular line. LUNGS: Clear to auscultation bilaterally. ABDOMEN: Soft, nontender, and nondistended. No hepatosplenomegaly. Positive bowel sounds. EXTREMITIES: Right leg in external rotation, painful to touch, decreased range of motion. Otherwise, no edema, clubbing, or cyanosis. LABORATORY AND DIAGNOSTIC DATA: Laboratory findings, WBC is 10.3, hemoglobin of 10.4, hematocrit of 31.3%, platelet count 245,00. Sodium is 142, potassium is 4.4, chloride 104, bicarbonate is 25, BUN of 25, creatinine 1.3, glucose is 134, calcium is 9.1. Chest x-ray showed no acute cardiopulmonary disease. ASSESSMENT AND PLAN: The patient is a very unfortunate 83-year-old lady seen in Cardiology consultation. The patient does not have any history of coronary artery disease, congestive heart failure, or cardiac arrhythmias. She is capable of tolerating more than four medications with her usual activities prior to this event without any limitations. A 12-lead electrocardiogram shows sinus rhythm with no acute ischemic features. A 2D echocardiography at the bedside shows normal LV systolic function with LVEF of about 60% to 65% with mild aortic regurgitation, grade 1 LV diastolic dysfunction with normal intracardiac filling pressure and mild pulmonary hypertension with RVSP of 37 mmHg. The patient is clear for the above intermediate risk surgery with the risk of coronary artery events preoperatively estimated to be less than 1%. We will continue to follow this patient in the postoperative period. I would like to thank Dr. Chavarria for allowing me to participate in the care of this patient. Alejandro Estrada M.D. DR: PATSY JOB#: [id number] CC:
[2018-10-17] MEDS: Metoprolol 25mg tab ORAL SCH ×2 (04:28→16:00)
[2018-10-17] MEDS: ceFAZolin sod 2 GM in D5W 110 ML IV SCH (05:39)
--- NOTE | 2018-10-17 06:00 | NUR ---
NURSE NOTES:Patient denies pain at this time . daughter states "my mom no pain " will [id number] to monitor.
[2018-10-17 06:41] LABS: HEMATOCRIT 26.8 % (37.0-47.0); HEMOGLOBIN 8.7 G/DL (12.0-16.0); MEAN CORPUSCULAR VOLUME 87 FL (80-99); PLATELET COUNT 234 K/UL (150-450); RED BLOOD COUNT 3.09 M/UL (4.20-5.40); RED CELL DISTRIBUTION WIDTH 13.1 % (11.6-14.8); WHITE BLOOD COUNT 9.6 K/UL (4.8-10.8)
[2018-10-17 07:01] LABS: ANION GAP 8 mmol/L (5-15); BLOOD UREA NITROGEN 24 mg/dL (7-18); CALCIUM 8.8 MG/DL (8.5-10.1); CARBON DIOXIDE 28 MMOL/L (21-32); CHLORIDE 103 MMOL/L (98-107); CREATININE 1.2 MG/DL (0.55-1.30); POTASSIUM 4.4 MMOL/L (3.5-5.1); SODIUM 139 MMOL/L (136-145)
--- NOTE | 2018-10-17 07:34 | NUR ---
HAND-OFF: Report given to Zuleika Zavala Patient in stable condition.
--- NOTE | 2018-10-17 07:37 | NUR ---
NURSE NOTES: Pt awake daughter is at bedside, pt ate minimal for breakfast. Per report of out going nurse pt was attempting to get out of bed. She is currently calm. Pt is smiling no facial grimace of pain. Call light is in reach. Current plan of care will be followed
[2018-10-17] MEDS: D5 1/2NS w/KCl 20mEq 1,000 ML IV SCH (07:50)
[2018-10-17 08:00] VITALS: BP 136/74
--- NOTE | 2018-10-17 08:15 | Orthopedic Progress Note ---
Orthopedic - Progress Note Subjective Symptoms: improved Objective Laboratory Tests Test 10/17/18 06:05 White Blood Count 9.6 K/UL (4.8-10.8) Red Blood Count 3.09 M/UL (4.20-5.40) L Hemoglobin 8.7 G/DL (12.0-16.0) L Hematocrit 26.8 % (37.0-47.0) L Mean Corpuscular Volume 87 FL (80-99) Mean Corpuscular Hemoglobin 28.3 PG (27.0-31.0) Mean Corpuscular Hemoglobin Concent 32.6 G/DL (32.0-36.0) Red Cell Distribution Width 13.1 % (11.6-14.8) Platelet Count 234 K/UL (150-450) Mean Platelet Volume 7.1 FL (6.5-10.1) Neutrophils (%) (Auto) % (45.0-75.0) Lymphocytes (%) (Auto) % (20.0-45.0) Monocytes (%) (Auto) % (1.0-10.0) Eosinophils (%) (Auto) % (0.0-3.0) Basophils (%) (Auto) % (0.0-2.0) Neutrophils % (Manual) Pending Lymphocytes % (Manual) Pending Platelet Estimate Pending Platelet Morphology Pending Sodium Level 139 MMOL/L (136-145) Potassium Level 4.4 MMOL/L (3.5-5.1) Chloride Level 103 MMOL/L (98-107) Carbon Dioxide Level 28 MMOL/L (21-32) Anion Gap 8 mmol/L (5-15) Blood Urea Nitrogen 24 mg/dL (7-18) H Creatinine 1.2 MG/DL (0.55-1.30) Estimat Glomerular Filtration Rate mL/min (>60) Glucose Level 158 MG/DL (74-106) H Calcium Level 8.8 MG/DL (8.5-10.1) Last 24 Hour Vital Signs Date Time Temp Pulse Resp B/P (MAP) Pulse Ox O2 Delivery O2 Flow Rate FiO2 10/17/18 04:28 90 152/74 10/17/18 04:00 98.0 90 20 152/74 (100) 97 10/17/18 00:00 97.6 88 20 125/70 (88) 96 10/16/18 21:24 98.1 10/16/18 21:00 Room Air 10/16/18 20:00 97.5 75 20 120/67 (84) 96 10/16/18 16:45 98.1 71 18 112/61 98 Nasal Cannula 3 10/16/18 16:30 76 15 114/64 95 Nasal Cannula 3 10/16/18 16:15 83 21 127/70 97 Nasal Cannula 3 10/16/18 16:05 70 17 139/73 100 Simple Mask 6 10/16/18 16:00 71 101/71 10/16/18 15:53 76 13 139/70 100 Simple Mask 6 10/16/18 15:48 77 18 122/74 100 Simple Mask 6 10/16/18 15:43 97.8 86 16 106/66 100 Simple Mask 6 10/16/18 15:39 86 16 100 10/16/18 12:49 169/86 10/16/18 12:00 98.0 63 20 169/86 (113) 97 10/16/18 09:00 Room Air Intake and Output 10/16/18 10/17/18 19:00 07:00 Intake Total 675 ml 1415 ml Output Total 50 ml 400 ml Balance 625 ml 1015 ml Intake Oral 520 ml IV Total 675 ml 895 ml Output Urine Total 400 ml Estimated Blood Loss 50 ml # Voids 2 Laboratory Tests Test 10/17/18 06:05 White Blood Count 9.6 K/UL (4.8-10.8) Red Blood Count 3.09 M/UL (4.20-5.40) L Hemoglobin 8.7 G/DL (12.0-16.0) L Hematocrit 26.8 % (37.0-47.0) L Mean Corpuscular Volume 87 FL (80-99) Mean Corpuscular Hemoglobin 28.3 PG (27.0-31.0) Mean Corpuscular Hemoglobin Concent 32.6 G/DL (32.0-36.0) Red Cell Distribution Width 13.1 % (11.6-14.8) Platelet Count 234 K/UL (150-450) Mean Platelet Volume 7.1 FL (6.5-10.1) Neutrophils (%) (Auto) % (45.0-75.0) Lymphocytes (%) (Auto) % (20.0-45.0) Monocytes (%) (Auto) % (1.0-10.0) Eosinophils (%) (Auto) % (0.0-3.0) Basophils (%) (Auto) % (0.0-2.0) Neutrophils % (Manual) Pending Lymphocytes % (Manual) Pending Platelet Estimate Pending Platelet Morphology Pending Sodium Level 139 MMOL/L (136-145) Potassium Level 4.4 MMOL/L (3.5-5.1) Chloride Level 103 MMOL/L (98-107) Carbon Dioxide Level 28 MMOL/L (21-32) Anion Gap 8 mmol/L (5-15) Blood Urea Nitrogen 24 mg/dL (7-18) H Creatinine 1.2 MG/DL (0.55-1.30) Estimat Glomerular Filtration Rate mL/min (>60) Glucose Level 158 MG/DL (74-106) H Calcium Level 8.8 MG/DL (8.5-10.1) Wound: clean, dry, intact Drains: none Neuro Status: normal Vascular Status: normal Additional Comments xray reviewed and excellent Assessment Post-op Diagnosis POD 1 Procedure Performed rt hip orif Plan Plan: PT, discharge plan - likely snf on d/c. f/u Dr Hickman as outpt Nicci Leyva Oct 17, 2018 08:15
[2018-10-17] MEDS: Pantoprazole Inj IV SCH (08:36)
[2018-10-17] MEDS: celeBREX 200mg Cap **SURGERY PATIENTS ONLY ORAL SCH (08:37)
[2018-10-17] MEDS: Docusate 100mg cap ORAL SCH ×4 (08:37→23:16)
[2018-10-17] MEDS ORDERED: Enoxaparin 40mg Inj SUBQ SCH (09:00)
--- NOTE | 2018-10-17 09:16 | General Progress Note ---
Assessment/Plan Assessment/Plan S: I am doing ok O: appears comfortable, denies chest pain, no sob, daughter at the bed side ,PHYSICAL EXAMINATION: HEAD AND NECK: Atraumatic and normocephalic. CHEST: Clear to auscultation. HEART: S1 and S2. Regular rate and rhythm. ABDOMEN: Soft. No organomegaly. MUSCULOSKELETAL: Positive for decreased range of motion in the right lower extremity, post op changes in right hip noted. NEUROLOGY: Awake, alert, and oriented x3. Meds : reviewed Echo from October 15, reviewed ASSESSMENT: 1. Right-sided intertrochanteric fracture. 2. Hypertension: Uncontrolled 3. Acute encephalopathy-probable diagnosis. 4. Mechanical fall and right intertrochanteric fracture. 5. Noncompliance with medical advice. 6. GI and DVT prophylaxis. 7. The patient initially refused proceeding with surgery. Plan: Patient Medically stable for planned surgery, no medical contraindication Advised the daughter, regarding the potential harm by holding the ordered medication, including BP meds to patient/mother Will optimize BP medication Pre- Op test, including echo are revewied stable medically in post op , D#1 Subjective Allergies: Coded Allergies: No Known Allergies (Unverified , 10/14/18) Objective Last 24 Hour Vital Signs Date Time Temp Pulse Resp B/P (MAP) Pulse Ox O2 Delivery O2 Flow Rate FiO2 10/17/18 04:28 90 152/74 10/17/18 04:00 98.0 90 20 152/74 (100) 97 10/17/18 00:00 97.6 88 20 125/70 (88) 96 10/16/18 21:24 98.1 10/16/18 21:00 Room Air 10/16/18 20:00 97.5 75 20 120/67 (84) 96 10/16/18 16:45 98.1 71 18 112/61 98 Nasal Cannula 3 10/16/18 16:30 76 15 114/64 95 Nasal Cannula 3 10/16/18 16:15 83 21 127/70 97 Nasal Cannula 3 10/16/18 16:05 70 17 139/73 100 Simple Mask 6 10/16/18 16:00 71 101/71 10/16/18 15:53 76 13 139/70 100 Simple Mask 6 10/16/18 15:48 77 18 122/74 100 Simple Mask 6 10/16/18 15:43 97.8 86 16 106/66 100 Simple Mask 6 10/16/18 15:39 86 16 100 10/16/18 12:49 169/86 10/16/18 12:00 98.0 63 20 169/86 (113) 97 Intake and Output 10/16/18 10/17/18 19:00 07:00 Intake Total 675 ml 1415 ml Output Total 50 ml 400 ml Balance 625 ml 1015 ml Intake Oral 520 ml IV Total 675 ml 895 ml Output Urine Total 400 ml Estimated Blood Loss 50 ml # Voids 2 Laboratory Tests 10/17/18 06:05: White Blood Count 9.6, Red Blood Count 3.09L, Hemoglobin 8.7L, Hematocrit 26.8L , Mean Corpuscular Volume 87, Mean Corpuscular Hemoglobin 28.3, Mean Corpuscular Hemoglobin Concent 32.6, Red Cell Distribution Width 13.1, Platelet Count 234, Mean Platelet Volume 7.1, Neutrophils (%) (Auto) , Lymphocytes (%) ( Auto) , Monocytes (%) (Auto) , Eosinophils (%) (Auto) , Basophils (%) (Auto) , Differential Total Cells Counted 100, Neutrophils % (Manual) 93H, Lymphocytes % (Manual) 5L, Monocytes % (Manual) 2, Eosinophils % (Manual) 0, Basophils % ( Manual) 0, Band Neutrophils 0, Platelet Estimate Adequate, Platelet Morphology Normal, Red Blood Cell Morphology Normal, Sodium Level 139, Potassium Level 4.4 , Chloride Level 103, Carbon Dioxide Level 28, Anion Gap 8, Blood Urea Nitrogen 24H, Creatinine 1.2, Estimat Glomerular Filtration Rate , Glucose Level 158H, Calcium Level 8.8 Height (Feet): 5 Height (Inches): 3.00 Weight (Pounds): 115 Angie Chavarria MD Oct 17, 2018 09:16
--- NOTE | 2018-10-17 10:48 | 48 Hour Post Anesthesia Eval ---
Post Anesthesia Evaluation Procedure: ORIF R Hip Date of Evaluation: Oct 17, 2018 Time of Evaluation: 10:45 Blood Pressure Systolic: 154 0: 154 Pulse Rate: 72 Respiratory Rate: 20 Temperature (Fahrenheit): 97.4 O2 Sat by Pulse Oximetry: 98 Airway: patent Nausea: No Vomiting: No Pain Intensity: 2 Hydration Status: adequate Cardiopulmonary Status: stable Mental Status/LOC: patient returned to baseline Follow-up Care/Observations: n/a Post-Anesthesia Complications: none Follow-up care needed: N/A Gee Oliveira MD Oct 17, 2018 10:48
--- NOTE | 2018-10-17 11:17 | NUR ---
P.T Note: P.T evaluation completed and treatment initiated. Please refer to P.T evaluation for current functional status. Pt is alert , oriented to self, person and place but not to time. Pt is confused and only speaks Burundian however able to converse and follows commands. Daughter present for translation and provided pertinent information re: PLOF. Pt is limited mostly by pain and generalized weakness, pt also reported lack of sleep at night. Pt is overall impulsive and demonstrated decreased focus on safety instructions. Pt currently require MOD A X 1 for bed mobility , transfers and gait/ambulation activities using the FWW. Skilled P.T service is warranted to improve her balance, strength and endurance to increase safety and mobility independence. Recommend SNF for short term rehab VS home with P.T. at [place]. DME to include FWW and 3 in 1 bedside commode. Thank you for this referral.
[2018-10-17 12:00] VITALS: BP 130/70
--- NOTE | 2018-10-17 12:06 | NUR ---
*-* INSURANCE *-* ALL CLINICALS HAVE BEENF AXED TO: [facility] [phone] / DEPT FX; [phone]..............REVIEW BLUE CROSS REF# [id number] FX: [phone]...
[2018-10-17 16:00] VITALS: BP 122/67
--- NOTE | 2018-10-17 17:00 | NUR ---
NURSE NOTES: Pt up with physical therapy earlier in shift with standard walker weight bearing as tolerated. Italian speaker daughter has been at bedside along with grandson. Pt denies pain. Required verbal encouragement ti cooperate with iron use. Educated on importance of use related to low hemoglobin. Pt has been stable breathing room air. Blood pressure medication refused. Per family member, pt has high blood pressure is usually y extremely high , and current blood pressure has improved,. Call light is in reach. Frequent room rounds made for safety
--- NOTE | 2018-10-17 19:30 | NUR ---
HAND-OFF: Report given to Sunshine TRUJILLO.
--- NOTE | 2018-10-17 19:30 | NUR ---
NURSE NOTES: Received report from Diane Jennings. Patient is aaox2-3, confused. No signs of distress. No pain noted. IV site patent. Due meds given, needs attended to. Bed low, call light within reach. Addendum: 10/17/18 at 8968 by KAIT WOODWARD RN *Disregard, incorrect patient.
--- NOTE | 2018-10-17 19:45 | NUR ---
NURSE NOTES: Patient is awake, confused, talkative. No signs of distress. No pain noted. IV site patent. Dressing right hip c/d/i. Caregiver at bedside. Neuro checks WNL. Bed low, call light within reach.
[2018-10-17 20:00] VITALS: BP 145/69
[2018-10-17] MEDS: Enoxaparin 30mg Inj SUBQ SCH (23:16)
--- NOTE | 2018-10-17 23:32 | Cardiology Progress Note ---
Assessment/Plan Assessment/Plan 1. s/p Right hip open reduction and internal fixation, POD #0 with no perioperative cardiac events. 2. Hypertenion. Objective Last 24 Hour Vital Signs Date Time Temp Pulse Resp B/P (MAP) Pulse Ox O2 Delivery O2 Flow Rate FiO2 10/17/18 16:00 98.1 77 17 122/67 (85) 97 10/17/18 16:00 77 122/67 10/17/18 12:00 98.4 75 17 130/70 (90) 96 10/17/18 10:48 72 20 98 10/17/18 09:00 Room Air 10/17/18 08:00 99.3 72 17 136/74 (94) 95 10/17/18 04:28 90 152/74 10/17/18 04:00 98.0 90 20 152/74 (100) 97 10/17/18 00:00 97.6 88 20 125/70 (88) 96 Intake and Output 10/16/18 10/17/18 19:00 07:00 Intake Total 675 ml 1415 ml Output Total 50 ml 400 ml Balance 625 ml 1015 ml Intake Oral 520 ml IV Total 675 ml 895 ml Output Urine Total 400 ml Estimated Blood Loss 50 ml # Voids 2 Laboratory Tests Test 10/17/18 06:05 White Blood Count 9.6 K/UL (4.8-10.8) Red Blood Count 3.09 M/UL (4.20-5.40) L Hemoglobin 8.7 G/DL (12.0-16.0) L Hematocrit 26.8 % (37.0-47.0) L Mean Corpuscular Volume 87 FL (80-99) Mean Corpuscular Hemoglobin 28.3 PG (27.0-31.0) Mean Corpuscular Hemoglobin Concent 32.6 G/DL (32.0-36.0) Red Cell Distribution Width 13.1 % (11.6-14.8) Platelet Count 234 K/UL (150-450) Mean Platelet Volume 7.1 FL (6.5-10.1) Neutrophils (%) (Auto) % (45.0-75.0) Lymphocytes (%) (Auto) % (20.0-45.0) Monocytes (%) (Auto) % (1.0-10.0) Eosinophils (%) (Auto) % (0.0-3.0) Basophils (%) (Auto) % (0.0-2.0) Differential Total Cells Counted 100 Neutrophils % (Manual) 93 % (45-75) H Lymphocytes % (Manual) 5 % (20-45) L Monocytes % (Manual) 2 % (1-10) Eosinophils % (Manual) 0 % (0-3) Basophils % (Manual) 0 % (0-2) Band Neutrophils 0 % (0-8) Platelet Estimate Adequate Platelet Morphology Normal Red Blood Cell Morphology Normal Sodium Level 139 MMOL/L (136-145) Potassium Level 4.4 MMOL/L (3.5-5.1) Chloride Level 103 MMOL/L (98-107) Carbon Dioxide Level 28 MMOL/L (21-32) Anion Gap 8 mmol/L (5-15) Blood Urea Nitrogen 24 mg/dL (7-18) H Creatinine 1.2 MG/DL (0.55-1.30) Estimat Glomerular Filtration Rate mL/min (>60) Glucose Level 158 MG/DL (74-106) H Calcium Level 8.8 MG/DL (8.5-10.1) Objective HEENT: Atraumatic and normocephalic. Anicteric. Pupils are equal, round, and reactive to light and accommodation. Extraocular muscles intact. NECK: JVP less than 5 cm. No carotid bruit. Carotid upstrokes 2+ bilaterally. CVS: Normal S1 and S2. Regular rate and rhythm. No murmurs, gallops, or rubs. PMI is at fourth intercostal space at the midclavicular line. LUNGS: Clear to auscultation bilaterally. ABDOMEN: Soft, nontender, and nondistended. No hepatosplenomegaly. Positive bowel sounds. EXTREMITIES: Right leg in external rotation, painful to touch, decreased range of motion. Otherwise, no edema, clubbing, or cyanosis. Alejandro Estrada MD Oct 17, 2018 23:32
[2018-10-18] VITALS: BP 151/86
--- NOTE | 2018-10-18 01:45 | Consultation ---
DATE OF CONSULTATION: 10/17/2018 PHYSICAL MEDICINE REHABILITATION CONSULTATION REQUESTING PHYSICIAN: Angie Chavarria M.D. GLOBAL PRODUCT MANAGER: Alejandro Oviedo M.D. ORTHOPEDIC SURGEON: Ambrocio Hickman M.D. CHIEF COMPLAINT: Difficulty with ambulation, activity of daily living. The patient is status post mechanical fall with right hip fracture and surgery. HISTORY OF PRESENT ILLNESS: The patient is an 83-year-old Ukrainian female with history of hypertension, apparently was in an independent level of function living at home by herself alone. However, with about 93 hours of in-home support services with the Ukrainian female with history of hypertension who has an independent level of function, living at home in her apartment alone, however, with 90 hours of per month chief engineer's helper apparently sustained a mechanical fall at home and was found about 2 to 3 hours after her fall with her daughter on the floor. Paramedics was called. The patient was brought to the emergency room at [facility]. Further workup including the x-ray of the hip showed a right hip intertrochanteric fracture. The patient was evaluated by orthopedic surgeon and word processing supervisor preoperatively and was taken to operation room by Dr. Hickman with diagnosis of right hip intertrochanteric fracture with displacement underwent open reduction, internal fixation of the right hip. Postoperatively, she had a drop on her hemoglobin for about close to 2 units. The patient also had elevated proBNP level. The patient had significant functional impairment. I was asked today to evaluate the patient for rehabilitation. Patient chief engineer's helper is at the bedside providing some information as well as interpretation. The patient has right hip pain. Significant difficulty with her gait and activity of daily living care. Patient is weightbearing as tolerated of the right lower limb. She has significant drop on the level of function. PAST MEDICAL HISTORY: Hypertension. ALLERGIES: No known drug allergies. MEDICATIONS: Celebrex 200 mg daily, ferrous sulfate 325 mg t.i.d., D50 p.r.n., Colace 100 mg t.i.d., Dilaudid as needed subcutaneously 1 mg every 4 hours, [place] p.r.n. needed, Tylenol, milk of magnesia, Dulcolax, Tylenol p.r.n., Lopressor 25 mg b.i.d., Lasix 40 mg IV every 4 hours p.r.n., clonidine 0.1 mg every 4 hours as needed, Protonix IV 4 mg daily, Lovenox 30 mg subcutaneous daily, Tylenol, morphine, Colace, Zofran, D50 p.r.n. FAMILY AND SOCIAL HISTORY: The patient is . She has only 1 daughter who lives here in [place] and visit her frequently. She has a chief engineer's helper about 93 hours of per month. She lives in an apartment with 5 steps to enter and she was independent for ambulation and activity of daily living prior to this incident. Currently requires moderate assistance for bed mobility, transfer, and gait with front-wheeled walker with moderate hair or beauty salon assistant and walked about 20 feet distances. FAMILY HISTORY: Positive for hypertension. REVIEW OF SYSTEMS: CONSTITUTIONAL: No chills or fever. EYES: Denies diplopia. EAR, NOSE, AND THROAT: Denies dysphagia. CARDIOVASCULAR: No chest pain. PULMONARY: No shortness of breath. GASTROINTESTINAL: No abdominal pain. GENITOURINARY: No dysuria or hematuria. Pierson catheter in place. MUSCULOSKELETAL: Right hip fracture and surgery. MUSCULOSKELETAL: Right hip fracture and surgery with pain. INTEGUMENTARY: No cancerous lesion. NEURO: The patient denies spasm, tics, or numbness. PHYSICAL EXAMINATION: VITAL SIGNS: Blood pressure 120/60, respiratory rate 17 per minute, heart rate 77 per minute, temperature 98 degrees Fahrenheit, O2 saturation 97%. Height is 160 cm, weight is 52 kg. Body mass index 20. GENERAL: No acute distress. HEENT: Extraocular movement intact. No facial droop. NECK: Supple with no lymphadenopathy. Pulse bilateral carotid femoral dorsalis pedis palpable. HEART: Regular rhythm and rate. LUNGS: Clear to auscultation bilateral. ABDOMEN: Soft, nontender, not distended. Normal bowel sounds with no palpable abnormal mass. EXTREMITIES: No pitting edema. No calf tenderness. No clubbing or cyanosis. Right hip postoperative incision with a Steri-Strip and dressing in place. No active drainage noted. SKIN: No rashes. NEURO: Alert and awake, follows commands. Movement of bilateral upper and left lower limb antigravity, movement of left ankle and toes antigravity. Sensation grossly intact to light touch. LABORATORY STUDIES: WBC 9.6, hemoglobin 8.7, platelet 234,000. Sodium 139, potassium 4.4, BUN 24, creatinine 1.2, glucose 158. AST and ALT 18 and 15. Albumin 3.0. TSH 1.03. Cholesterol 136, LDL 79. ASSESSMENT: This is an 83-year-old Ukrainian female, status post mechanical fall with. 1. Right hip intertrochanteric fracture/right hip fracture with displacement, status post right hip open reduction and internal fixation on October 16, [address] Ambrocio Hickman. Full weightbearing as tolerated. 2. Limb pain. 3. Gait abnormality and debility. 4. and functional decline. 5. Anemia. 6. Hypertension. 7. Elevated proBNP level. Echocardiogram pending results. 8. Small nutrition with albumin of 3. RECOMMENDATION: This patient will benefit from physical therapy, occupational therapy, and 24 hours nursing care. Physical therapy for range of motion, transfer training, endurance, balance and gait training, fall prevention with appropriate assistive device, weightbearing as tolerated as per orthopedic surgeon instruction. Occupational therapy for activities of daily living equipment function transfer evaluation and training upper extremity range of motion and strengthening exercise. Nursing for evaluation of her bowel and bladder. Medication regimen skin care prevention of pressure ulcer, patient and family education and chief engineer's helper review education. Skin care and dressing change. Nutritional support. Incentive spirometry. Monitor her bowel and bladder. Cardiac precaution, fall precaution, pressure ulcer precaution. Acute inpatient rehabilitation placement when the patient is medically and surgically stable and clear. Pending insurance authorization. Continue medical and surgical management per medical and surgical team. Thank you for your consultation. Norman Lazcano M.D. DR: John JOB#: [id number] CC:
[2018-10-18 04:00] VITALS: BP 132/74
[2018-10-18] MEDS: Metoprolol 25mg tab ORAL SCH ×2 (05:03→16:00)
[2018-10-18 06:59] LABS: BASOPHILS % (AUTO) 0.2 % (0.0-2.0); EOSINOPHILS % (AUTO) 0.4 % (0.0-3.0); HEMATOCRIT 24.9 % (37.0-47.0); HEMOGLOBIN 8.2 G/DL (12.0-16.0); LYMPHOCYTES % (AUTO) 17.8 % (20.0-45.0); MEAN CORPUSCULAR VOLUME 87 FL (80-99); MONOCYTES % (AUTO) 7.9 % (1.0-10.0); NEUTROPHILS % (AUTO) 73.6 % (45.0-75.0); PLATELET COUNT 256 K/UL (150-450); RED BLOOD COUNT 2.87 M/UL (4.20-5.40); WHITE BLOOD COUNT 6.3 K/UL (4.8-10.8)
--- NOTE | 2018-10-18 07:30 | Orthopedic Progress Note ---
Orthopedic - Progress Note Subjective Symptoms: c/o post-op hip pain Objective Last 24 Hour Vital Signs Date Time Temp Pulse Resp B/P (MAP) Pulse Ox O2 Delivery O2 Flow Rate FiO2 10/18/18 05:03 82 132/74 10/18/18 04:00 97.9 82 20 132/74 (93) 97 10/18/18 00:00 97.6 85 20 151/86 (107) 97 10/17/18 21:00 Room Air 10/17/18 20:00 98.7 89 20 145/69 (94) 95 10/17/18 16:00 98.1 77 17 122/67 (85) 97 10/17/18 16:00 77 122/67 10/17/18 12:00 98.4 75 17 130/70 (90) 96 10/17/18 10:48 72 20 98 10/17/18 09:00 Room Air 10/17/18 08:00 99.3 72 17 136/74 (94) 95 Intake and Output 10/17/18 10/18/18 18:59 06:59 Intake Total 1075 ml Balance 1075 ml Intake Oral 1000 ml IV Total 75 ml # Voids 2 Laboratory Tests Test 10/18/18 04:45 White Blood Count 6.3 K/UL (4.8-10.8) Red Blood Count 2.87 M/UL (4.20-5.40) L Hemoglobin 8.2 G/DL (12.0-16.0) L Hematocrit 24.9 % (37.0-47.0) L Mean Corpuscular Volume 87 FL (80-99) Mean Corpuscular Hemoglobin 28.7 PG (27.0-31.0) Mean Corpuscular Hemoglobin Concent 33.1 G/DL (32.0-36.0) Red Cell Distribution Width 13.0 % (11.6-14.8) Platelet Count 256 K/UL (150-450) Mean Platelet Volume 6.7 FL (6.5-10.1) Neutrophils (%) (Auto) 73.6 % (45.0-75.0) Lymphocytes (%) (Auto) 17.8 % (20.0-45.0) L Monocytes (%) (Auto) 7.9 % (1.0-10.0) Eosinophils (%) (Auto) 0.4 % (0.0-3.0) Basophils (%) (Auto) 0.2 % (0.0-2.0) Wound: clean, dry Drains: none Neuro Status: normal Assessment Post-op Diagnosis POD #2 s/p R hip ORIF Plan Plan: PT, pain management, discharge plan Additional Comments Monitor Hgb for transfusion. currently patient stable. Defer to Medicine team. Ambrocio Hickman MD Oct 18, 2018 07:30
--- NOTE | 2018-10-18 07:53 | NUR ---
HAND-OFF: Report given to CASSANDRA Pereira. Patient stable.
[2018-10-18 08:00] VITALS: BP 121/64
--- NOTE | 2018-10-18 08:00 | NUR ---
NURSE NOTES: Received report from Gogo TRUJILLO, pt laying in bed a/a/o x2 Azerbaijani speaking lady, with no signs of distress or other issues at this time. pt's daughter at bedside. surgical dressing dry and intact. pt able to ambulate with unsteady gait and the help of of staff supervision. Iv on the left FA gauge #20 heplock. pt is in a regular diet. call light with in reach, bed in lowest position. side rales up x2. plan to transfer to [facility] once bed becomes available. I will f/u as needed.
[2018-10-18] MEDS: celeBREX 200mg Cap **SURGERY PATIENTS ONLY ORAL SCH (08:35)
[2018-10-18] MEDS: Docusate 100mg cap ORAL SCH ×5 (08:35→20:10)
[2018-10-18] MEDS: Pantoprazole Inj IV SCH (08:35)
--- NOTE | 2018-10-18 10:00 | NUR ---
NURSE NOTES: Called Case management to fallow with ARU placement. Mary LOVE stated that she is awaiting for response from [facility], she stated that she will notify once bed becomes available. I will f/u as needed.
--- NOTE | 2018-10-18 10:30 | NUR ---
CASE MANAGEMENT:REVIEW 10/17/18 SI: RT HIP FRACTURE POD #1...S/P RT HIP ORIF 98.1 77 17 122/67 97% ON RA H/H-8.7/26.8 IS: IVF@75/HR NORCO PO Q4HRS PRN LOPRESSOR PO Q12 IV PROTONIX QD LOVENOX SQ Q24 : MED/SURG UNIT [facility] 10/18/18 SI: RT HIP FRACTURE POD #1...S/P RT HIP ORIF 98.1 68 16 121/64 96% ON RA IS: NORCO PO Q4HRS PRN LOPRESSOR PO Q12 IV PROTONIX QD LOVENOX SQ Q24 : MED/SURG UNIT 3 [facility] [email or web address] PLAN: CONTINUE PHYSICAL THERAPY REFER TO [facility] FOR [facility]
--- NOTE | 2018-10-18 10:40 | NUR ---
DISCHARGE PLANNING PATIENT HAS BEEN REFERRED TO [facility] Dhruv HUERTA T: [phone] F: [phone] AWAIT ACCEPTANCE Addendum: 10/18/18 at 1454 by WHITNEY SANTILLAN LVN LVN RECEIVED CALL FROM [employer] STATING THAT [facility] IS NOT ONE OF THEIR CONTRACTED FACILITIES SO THEY CANNOT GIVE AUTHORIZATION
[2018-10-18 12:00] VITALS: BP 118/62
--- NOTE | 2018-10-18 13:50 | General Progress Note ---
Assessment/Plan Assessment/Plan S: I am doing ok O: appears comfortable, denies chest pain, no sob, family at the bed side ,PHYSICAL EXAMINATION: HEAD AND NECK: Atraumatic and normocephalic. CHEST: Clear to auscultation. HEART: S1 and S2. Regular rate and rhythm. ABDOMEN: Soft. No organomegaly. MUSCULOSKELETAL: Positive for decreased range of motion in the right lower extremity, post op changes in right hip noted. NEUROLOGY: Awake, alert, and oriented x3. Meds : reviewed Echo from October 15, reviewed ASSESSMENT: 1. Right-sided intertrochanteric fracture. 2. Hypertension: Uncontrolled 3. Acute encephalopathy-probable diagnosis. 4. Mechanical fall and right intertrochanteric fracture. 5. Noncompliance with medical advice. 6. GI and DVT prophylaxis. 7. The patient initially refused proceeding with surgery. Plan: Patient Medically stable for planned surgery, no medical contraindication Advised the daughter, regarding the potential harm by holding the ordered medication, including BP meds to patient/mother Will optimize BP medication stable medically in post op , D#2 for ARU transfer, once accepted Subjective Allergies: Coded Allergies: No Known Allergies (Unverified , 10/14/18) Objective Last 24 Hour Vital Signs Date Time Temp Pulse Resp B/P (MAP) Pulse Ox O2 Delivery O2 Flow Rate FiO2 10/18/18 12:00 98.2 65 16 118/62 (80) 96 10/18/18 09:00 Room Air 10/18/18 08:00 98.1 68 16 121/64 (83) 96 10/18/18 05:03 82 132/74 10/18/18 04:00 97.9 82 20 132/74 (93) 97 10/18/18 00:00 97.6 85 20 151/86 (107) 97 10/17/18 21:00 Room Air 10/17/18 20:00 98.7 89 20 145/69 (94) 95 10/17/18 16:00 98.1 77 17 122/67 (85) 97 10/17/18 16:00 77 122/67 Intake and Output 10/17/18 10/18/18 19:00 07:00 Intake Total 1075 ml Balance 1075 ml Intake Oral 1000 ml IV Total 75 ml # Voids 2 Laboratory Tests 10/18/18 04:45: White Blood Count 6.3, Red Blood Count 2.87L, Hemoglobin 8.2L, Hematocrit 24.9L , Mean Corpuscular Volume 87, Mean Corpuscular Hemoglobin 28.7, Mean Corpuscular Hemoglobin Concent 33.1, Red Cell Distribution Width 13.0, Platelet Count 256, Mean Platelet Volume 6.7, Neutrophils (%) (Auto) 73.6, Lymphocytes (% ) (Auto) 17.8L, Monocytes (%) (Auto) 7.9, Eosinophils (%) (Auto) 0.4, Basophils (%) (Auto) 0.2 Height (Feet): 5 Height (Inches): 3.00 Weight (Pounds): 115 Angie Chavarria MD Oct 18, 2018 13:50
[2018-10-18] MEDS ORDERED: Tubing IV Secondary IV ONE (14:51)
[2018-10-18] MEDS ORDERED: 1/2 NS 1000ml IV ONE (14:51)
[2018-10-18 16:00] VITALS: BP 137/74
--- NOTE | 2018-10-18 16:06 | NUR ---
CHARGE NURSE NOTE: H@H 8.9. notified
--- NOTE | 2018-10-18 16:40 | NUR ---
*-* INSURANCE *-* ALL CLINICALS HAVE BEENF AXED TO: [facility] [phone] / DEPT FX; [phone]..............REVIEW NICOLLE CROSS REF# [id number] FX: [phone]... Addendum: 10/19/18 at 1459 by WHITNEY SANTILLAN LVN LVN [employer] MANAGER [employer] T: [phone] F: [phone] #[id number]
--- NOTE | 2018-10-18 17:27 | Cardiology Progress Note ---
Assessment/Plan Assessment/Plan 1. s/p Right hip open reduction and internal fixation, POD #2 with no perioperative cardiac events. 2. Hypertension, continue metoprolol. Subjective Subjective No cardiac events. POD #2 Objective Last 24 Hour Vital Signs Date Time Temp Pulse Resp B/P (MAP) Pulse Ox O2 Delivery O2 Flow Rate FiO2 10/18/18 16:00 77 137/74 10/18/18 12:00 98.2 65 16 118/62 (80) 96 10/18/18 09:00 Room Air 10/18/18 08:00 98.1 68 16 121/64 (83) 96 10/18/18 05:03 82 132/74 10/18/18 04:00 97.9 82 20 132/74 (93) 97 10/18/18 00:00 97.6 85 20 151/86 (107) 97 10/17/18 21:00 Room Air 10/17/18 20:00 98.7 89 20 145/69 (94) 95 Intake and Output 10/17/18 10/18/18 19:00 07:00 Intake Total 1075 ml Balance 1075 ml Intake Oral 1000 ml IV Total 75 ml # Voids 2 2D Echo: EF 60%, Mild LVH, Mild AR, RVSP 37 mmHg, Grade I LVDD Laboratory Tests Test 10/18/18 04:45 White Blood Count 6.3 K/UL (4.8-10.8) Red Blood Count 2.87 M/UL (4.20-5.40) L Hemoglobin 8.2 G/DL (12.0-16.0) L Hematocrit 24.9 % (37.0-47.0) L Mean Corpuscular Volume 87 FL (80-99) Mean Corpuscular Hemoglobin 28.7 PG (27.0-31.0) Mean Corpuscular Hemoglobin Concent 33.1 G/DL (32.0-36.0) Red Cell Distribution Width 13.0 % (11.6-14.8) Platelet Count 256 K/UL (150-450) Mean Platelet Volume 6.7 FL (6.5-10.1) Neutrophils (%) (Auto) 73.6 % (45.0-75.0) Lymphocytes (%) (Auto) 17.8 % (20.0-45.0) L Monocytes (%) (Auto) 7.9 % (1.0-10.0) Eosinophils (%) (Auto) 0.4 % (0.0-3.0) Basophils (%) (Auto) 0.2 % (0.0-2.0) Objective HEENT: Atraumatic and normocephalic. Anicteric. Pupils are equal, round, and reactive to light and accommodation. Extraocular muscles intact. NECK: JVP less than 5 cm. No carotid bruit. Carotid upstrokes 2+ bilaterally. CVS: Normal S1 and S2. Regular rate and rhythm. No murmurs, gallops, or rubs. PMI is at fourth intercostal space at the midclavicular line. LUNGS: Clear to auscultation bilaterally. ABDOMEN: Soft, nontender, and nondistended. No hepatosplenomegaly. Positive bowel sounds. EXTREMITIES: Right leg in external rotation, painful to touch, decreased range of motion. Otherwise, no edema, clubbing, or cyanosis. Alejandro Estrada MD Oct 18, 2018 17:27
--- NOTE | 2018-10-18 18:00 | NUR ---
NURSE NOTES: Received a call from Severino VILLATORO s/w with [facility], she stated that is a bed available for the patient to transfer today. RN notified Maria Luisa GIANG is aware and she stated that she will coordinated transfer for tomorrow morning. RN called back Eliz LOVE back to notify, that pt will be transfer until tomorrow morning. Eliz LOVE stated that she will hold the bed and will assign room number once pt is ready to transfer tomorrow 10/19/18. I will f/u as needed. NOTE: Please contact Eliz at [phone] (admission coordinator) - please call for report at [phone] (to ask for the charge nurse)
--- NOTE | 2018-10-18 19:35 | NUR ---
NURSE NOTES: patient received. patient in no acute distress at this time. patient complains of no pain at this time. patient awake and alert x2. Tristanian speaking daughter at beside. bedside commode at bedside. IV intact and asymptomatic. bed in lowest position and locked. call light within reach. bed alarm on.
[2018-10-18 20:00] VITALS: BP 153/88
--- NOTE | 2018-10-18 20:02 | NUR ---
HAND-OFF: Report given to Yany TRUJILLO. pt instable condition. During rounds pt's daughter stated that they would like to home instead of [facility]. pts daughter is aware that patient will need 24 hour supervision. she stated that she has a caregiver at home and she will have family and friends to help. pt's daughter also stated that this happened in the past and they were able to manage at home. I will f/u as needed.
[2018-10-18] MEDS: Enoxaparin 30mg Inj SUBQ SCH (23:43)
[2018-10-19] VITALS: BP 117/65
[2018-10-19 04:00] VITALS: BP 157/82
[2018-10-19] MEDS: Metoprolol 25mg tab ORAL SCH (04:14)
[2018-10-19 06:16] LABS: BASOPHILS % (AUTO) 0.6 % (0.0-2.0); EOSINOPHILS % (AUTO) 1.7 % (0.0-3.0); HEMATOCRIT 25.8 % (37.0-47.0); HEMOGLOBIN 8.3 G/DL (12.0-16.0); LYMPHOCYTES % (AUTO) 22.6 % (20.0-45.0); MEAN CORPUSCULAR VOLUME 88 FL (80-99); MONOCYTES % (AUTO) 6.4 % (1.0-10.0); NEUTROPHILS % (AUTO) 68.7 % (45.0-75.0); PLATELET COUNT 266 K/UL (150-450); RED BLOOD COUNT 2.92 M/UL (4.20-5.40); RED CELL DISTRIBUTION WIDTH 13.5 % (11.6-14.8); WHITE BLOOD COUNT 5.7 K/UL (4.8-10.8)
--- NOTE | 2018-10-19 07:20 | NUR ---
NURSE NOTES: WALKING ROUNDS DONE WITH OUTGOING RN. PATIENT AWAKE IN BED. RIGHT HIP SURGICAL SITE ASSESSED; C/D/I. [facility] WNL. DISCUSSED PLAN OF CARE FOR THE DAY. BEDIN LOW AND LOCKED POSITION. CALL LIGHT WITHIN REACH.
--- NOTE | 2018-10-19 07:25 | NUR ---
HAND-OFF: Report given to [pantera, rn].
[2018-10-19 08:00] VITALS: BP 124/84
[2018-10-19] MEDS: Pantoprazole Inj IV SCH (08:55)
[2018-10-19] MEDS: celeBREX 200mg Cap **SURGERY PATIENTS ONLY ORAL SCH (08:55)
[2018-10-19] MEDS: Docusate 100mg cap ORAL SCH ×3 (08:56→13:00)
[2018-10-19 12:00] VITALS: BP 123/80
--- NOTE | 2018-10-19 12:30 | NUR ---
NURSE NOTES: DISCHARGE ORDER RECEIVED FROM [facility]TH[facility]. PATIENT SEEN BY PCP; DR. ARGUETA. RX RECEIVED. DME GIVEN TO PT/ DTRSURESH. HOME HEALTH BEING ARRANGED BY CASE MANAGEMENT. PT/ DTR AWARE.
--- NOTE | 2018-10-19 12:32 | NUR ---
DISCHARGE PLAN PATIENT DECLINED ARU DISCHARGING HOME WITH HOME HEALTH CLINICALS FAXED TO [facility] FOR PT T: [phone] F: [phone] Addendum: 10/19/18 at 1640 by WHITNEY SANTILLAN LVN LVN [facility] UNABLE TO PROVIDE SERVICES D/T INSURANCE PATIENT HAS NOW BEEN REFERRED TO [facility] T: [phone] F: [phone]
[2018-10-19] MEDS ORDERED: LOVENOX10 MG SUBQ ×2 (12:45→13:38)
--- NOTE | 2018-10-19 12:47 | General Progress Note ---
Assessment/Plan Assessment/Plan S: I am doing ok O: appears comfortable, denies chest pain, no sob, family at the bed side ,PHYSICAL EXAMINATION: HEAD AND NECK: Atraumatic and normocephalic. CHEST: Clear to auscultation. HEART: S1 and S2. Regular rate and rhythm. ABDOMEN: Soft. No organomegaly. MUSCULOSKELETAL: Positive for decreased range of motion in the right lower extremity, post op changes in right hip noted. NEUROLOGY: Awake, alert, and oriented x3. Meds : reviewed Echo from October 15, ASSESSMENT: 1. Right-sided intertrochanteric fracture. 2. Hypertension: Uncontrolled 3. Acute encephalopathy-probable diagnosis. 4. Mechanical fall and right intertrochanteric fracture. 5. Noncompliance with medical advice. 6. GI and DVT prophylaxis. 7. The patient initially refused proceeding with surgery. Plan: Patient Medically stable for planned surgery, no medical contraindication Advised the daughter, regarding the potential harm by holding the ordered medication, including BP meds to patient/mother Will optimize BP medication stable medically in post op , D#3 ok to dc to home with pt, per family request Subjective Allergies: Coded Allergies: No Known Allergies (Unverified , 10/14/18) Objective Last 24 Hour Vital Signs Date Time Temp Pulse Resp B/P (MAP) Pulse Ox O2 Delivery O2 Flow Rate FiO2 10/19/18 12:00 98.6 79 16 123/80 (94) 96 10/19/18 09:00 Room Air 10/19/18 08:00 98.6 66 16 124/84 (97) 96 10/19/18 04:14 77 117/65 10/19/18 04:00 97.5 79 20 157/82 (107) 100 10/19/18 00:00 98.6 77 20 117/65 (82) 98 10/18/18 21:00 Room Air 10/18/18 20:00 98.2 83 20 153/88 (109) 95 10/18/18 16:00 98.1 77 16 137/74 (95) 97 10/18/18 16:00 77 137/74 Intake and Output 10/18/18 10/19/18 18:59 06:59 Intake Total 1000 ml 400 ml Balance 1000 ml 400 ml Intake Oral 1000 ml 400 ml # Voids 3 Laboratory Tests 10/19/18 04:45: White Blood Count 5.7, Red Blood Count 2.92L, Hemoglobin 8.3L, Hematocrit 25.8L , Mean Corpuscular Volume 88, Mean Corpuscular Hemoglobin 28.5, Mean Corpuscular Hemoglobin Concent 32.2, Red Cell Distribution Width 13.5, Platelet Count 266, Mean Platelet Volume 6.6, Neutrophils (%) (Auto) 68.7, Lymphocytes (% ) (Auto) 22.6, Monocytes (%) (Auto) 6.4, Eosinophils (%) (Auto) 1.7, Basophils ( %) (Auto) 0.6 Height (Feet): 5 Height (Inches): 3.00 Weight (Pounds): 115 Angie Chavarria MD Oct 19, 2018 12:47
[2018-10-19] MEDS ORDERED: CELEBREX200 MG ORAL (13:37)
[2018-10-19] MEDS ORDERED: METOPROLOL SUCC25 MG ORAL (13:39)
--- NOTE | 2018-10-19 14:00 | NUR ---
NURSE NOTES: PATIENT READY FOR DISCHARGE. DISCHARGE INSTRUCTIONS REVIEWED WITH DTR. FAMILY FRIEND LINDSEY GrigsbyHAS AGREED AND INSTRUCTED ON ADMINISTRATION OF [employer] THAT PATIENT WILL NEED FOR HOME.
--- NOTE | 2018-10-19 23:56 | Cardiology Progress Note ---
Assessment/Plan Assessment/Plan 1. s/p Right hip open reduction and internal fixation, POD #3 with no perioperative cardiac events. 2. Hypertension, well controlled, continue metoprolol. Subjective Subjective No cardiac events. POD #3 Objective Last 24 Hour Vital Signs Date Time Temp Pulse Resp B/P (MAP) Pulse Ox O2 Delivery O2 Flow Rate FiO2 10/19/18 12:00 98.6 79 16 123/80 (94) 96 10/19/18 09:00 Room Air 10/19/18 08:00 98.6 66 16 124/84 (97) 96 10/19/18 04:14 77 117/65 10/19/18 04:00 97.5 79 20 157/82 (107) 100 10/19/18 00:00 98.6 77 20 117/65 (82) 98 Intake and Output 10/18/18 10/19/18 19:00 07:00 Intake Total 1000 ml 400 ml Balance 1000 ml 400 ml Intake Oral 1000 ml 400 ml # Voids 3 2D Echo: EF 60%, Mild LVH, Mild AR, RVSP 37 mmHg, Grade I LVDD Laboratory Tests Test 10/19/18 04:45 White Blood Count 5.7 K/UL (4.8-10.8) Red Blood Count 2.92 M/UL (4.20-5.40) L Hemoglobin 8.3 G/DL (12.0-16.0) L Hematocrit 25.8 % (37.0-47.0) L Mean Corpuscular Volume 88 FL (80-99) Mean Corpuscular Hemoglobin 28.5 PG (27.0-31.0) Mean Corpuscular Hemoglobin Concent 32.2 G/DL (32.0-36.0) Red Cell Distribution Width 13.5 % (11.6-14.8) Platelet Count 266 K/UL (150-450) Mean Platelet Volume 6.6 FL (6.5-10.1) Neutrophils (%) (Auto) 68.7 % (45.0-75.0) Lymphocytes (%) (Auto) 22.6 % (20.0-45.0) Monocytes (%) (Auto) 6.4 % (1.0-10.0) Eosinophils (%) (Auto) 1.7 % (0.0-3.0) Basophils (%) (Auto) 0.6 % (0.0-2.0) Objective HEENT: Atraumatic and normocephalic. Anicteric. Pupils are equal, round, and reactive to light and accommodation. Extraocular muscles intact. NECK: JVP less than 5 cm. No carotid bruit. Carotid upstrokes 2+ bilaterally. CVS: Normal S1 and S2. Regular rate and rhythm. No murmurs, gallops, or rubs. PMI is at fourth intercostal space at the midclavicular line. LUNGS: Clear to auscultation bilaterally. ABDOMEN: Soft, nontender, and nondistended. No hepatosplenomegaly. Positive bowel sounds. EXTREMITIES: Right leg in external rotation, painful to touch, decreased range of motion. Otherwise, no edema, clubbing, or cyanosis. Alejandro Estrada MD Oct 19, 2018 23:56
--- NOTE | 2018-10-22 09:17 | Discharge Summary ---
Discharge Summary Discharge Summary _ DATE OF ADMISSION: 10/14/2018 DATE OF DISCHARGE: 10/19/2018 DISCHARGED BY: Dr. Chavarria REASON FOR ADMISSION: 83 years old female with past medical history of hypertension, presented to emergency department, status post mechanical fall at home. Since that time she was unable to ambulate. The daughter took her mom to urgent care . X-ray revealed intertrochanteric fracture of her right hip. Patient was brought to emergency room for further evaluation and management. Upon evaluation vital signs revealed slightly elevated blood pressure 149/86, otherwise stable. Laboratory workup revealed no leukocytosis, hemoglobin 10.4, hematocrit 31.3. Platelet 245. Stable coagulation profile. Stable electrolytes. BUN 25, creatinine 1.3. EKG revealed normal sinus rhythm, no acute ischemic changes. Chest x-ray revealed no acute cardiopulmonary pathology. X-ray of the from the outside facility revealed intratrochanteric fracture of the right hip without angulation. Patient was admitted for further management. CONSULTANTS: supervisor melt house Dr. Estrada surgery Dr. Hickman physical medicine rehabilitation team lead Dr. Lazcano [facility] COURSE: Patient admitted to medical surgical floor. Orthopedic surgery consult was requested. Cardiology consult was requested for clearance for surgery. Echocardiogram revealed preserved ejection fraction of 60-65% with no evidence of pericardial effusion. No evidence of wall motion abnormality. Mild left ventricular hypertrophy. Right ventricular systolic pressure of 37 consistent with mild pulmonary hypertension. Lipid panel was stable. Hemoglobin A1c A1c 5.9. Industrial Hygienist cleared patient for surgery. Blood pressure was managed with beta-ana. Patient initially refused surgery. Later she changed her mind and subsequently undergone open reduction internal fixation of the right hip fracture . Course of recovery was uneventful. Pain management was addressed as needed. DVT and GI prophylaxis provided. Fall precaution maintained. Patient was working with physical therapist. Bowel regimen instituted. Physical medicine rehabilitation consult was requested. He recommended to continue with physical and occupational therapy, maintain sufficient nutritional support, provide skin care and dressing change, continue with meticulous bowel and bladder program. Incentive spirometry was encouraged while patient was in the bed. Patient clinically improved. Patient was stable for discharge home with home health services to follow ( per family wishes). FINAL DIAGNOSES: Status post mechanical fall Right hip intertrochanteric fracture Status post open reduction internal fixation right hip fracture Hypertension Acute encephalopathy Non-compliance with medical advice. DISCHARGE MEDICATIONS: See Medication Reconciliation list. DISCHARGE INSTRUCTIONS: Patient was discharged home with home health services. Follow up with primary care provider in one week. I have been assigned to dictate discharge summary for this account. I was not involved in the patient's management. Edna Lowery NP Oct 22, 2018 09:17
== END 2018-10-19 14:30 | disposition home health service (06) | DRG 308 ==
LOC: EMR 18:19 → 3E 19:15 → EDBEDREQ 20:49
PROC: 0QS604Z Reposition Right Upper Femur with Internal Fixation Device, Open Approach (ICD-10-PCS; principal; 2018-10-17)
DX: S72.141A Displaced intertrochanteric fracture of right femur, initial encounter for closed fracture (principal); G93.40 Encephalopathy, unspecified; I10 Essential (primary) hypertension; W19.XXXA Unspecified fall, initial encounter; Y92.009 Unspecified place in unspecified non-institutional (private) residence as the place of occurrence of the external cause; Z53.29 Procedure and treatment not carried out because of patient's decision for other reasons
CPT/HCPCS: 36415; 71045; 72170; 76000; 80048; 80053; 80061; 82248; 83036; 83735; 83880; 84443; 85007; 85025; 85610; 85730; 86850; 86900; 86901; 93005; 93306; 94003; 94150; 99285; J2250; J2405

== ENCOUNTER 2019-09-12 13:01 | Emergency (ER) | payer MEDICAID ==
[~2019-09-12] VITALS: Ht 154.9 cm; Wt 49.4 kg
[~2019-09-12 13:01] MED LIST: CELEBREX200 MG ORAL; LISINOPRIL20 MG ORAL; LOVENOX10 MG SUBQ; METOPROLOL SUCC25 MG ORAL
--- NOTE | 2019-09-12 13:10 | NUR ---
ED Nurse Note: PT ARRIVED TO ED ON WHEEL CHAIR by daughter from home due to Rt hip fx. per daughter, pt fell on Rt side of body a week ago and have been c/o pain. pt had x-ray and Dr. Norman told them pt has Rt hip fx.
[2019-09-12 13:20] VITALS: BP 132/69
--- NOTE | 2019-09-12 14:15 | NUR ---
ED Nurse Note: PT WAS ASSISTED ON BED [place]
--- NOTE | 2019-09-12 14:36 | NUR ---
ED Nurse Note: PT TAKEN TO XRAY
--- NOTE | 2019-09-12 14:37 | NUR ---
ED Nurse Note: PT STATES THAT SHE HAS NO PAIN WHEN LAYING DOWN
[2019-09-12] MEDS ORDERED: LEXAPRO20 MG ORAL (14:40)
[2019-09-12] MEDS ORDERED: MECLIZINE HCL25 MG ORAL (14:40)
[2019-09-12] MEDS ORDERED: GABAPENTIN300 MG ORAL (14:40)
[2019-09-12] MEDS ORDERED: ARICEPT5 MG ORAL (14:40)
[2019-09-12] MEDS ORDERED: LISINOPRIL5 MG ORAL (14:40)
--- NOTE | 2019-09-12 14:44 | NUR ---
ED Nurse Note: verbal order for piper insert per ermd; noted and carried out. urine collected; sentdown to lab.
--- NOTE | 2019-09-12 14:46 | Emergency Room Report ---
History of Present Illness General Chief Complaint: Lower Extremity Injury Source: Patient, Family Member Present Illness HPI This patient is accompanied by her daughter. The patient has a history of Alzheimer's and so history is primarily obtained through the patient's daughter. About a week ago, the patient did suffer a mechanical fall. The daughter notes that the patient had been walking but appeared to be in pain with limited weightbearing on her right leg. She did undergo an x-ray 2 days ago as an outpatient and she was called by her primary care physician to report to the hospital because there was a fracture noted. Patient has pain with movement of the right hip and with any weightbearing on the right leg. She has no other complaints. She denies headache or neck pain. She denies weakness. She denies abdominal pain. She denies chest pain or shortness of breath. She has no other complaints. Allergies: Coded Allergies: No Known Allergies (Unverified , 10/14/18) Patient History Past Medical History: see triage record, HTN, dementia Social History: Denies: smoking, alcohol use, drug use Reviewed Nursing Documentation: PMH: Agreed; PSxH: Agreed Nursing Documentation-PMH Past Medical History: No History, Except For Hx Hypertension: Yes Hx Cancer: No Hx Gastrointestinal Problems: No Hx Neurological Problems: No Review of Systems All Other Systems: negative except mentioned in HPI Physical Exam Vital Signs Date Time Temp Pulse Resp B/P (MAP) Pulse Ox O2 Delivery O2 Flow Rate FiO2 09/12/19 13:08 98.1 76 18 143/68 (93) 96 Room Air Sp02 EP Interpretation: reviewed, normal General Appearance: no apparent distress, alert, GCS 15, non-toxic Head: normocephalic, atraumatic Eyes: bilateral eye normal inspection ENT: hearing grossly normal, normal pharynx, no angioedema, normal voice Neck: full range of motion, supple/symm/no masses Respiratory: chest non-tender, lungs clear, normal breath sounds, no respiratory distress, no retraction, no accessory muscle use, speaking full sentences Cardiovascular #1: regular rate, rhythm, no edema Gastrointestinal: normal bowel sounds, non tender, soft, non-distended, no guarding, no rebound Rectal: deferred Musculoskeletal: back normal, tender - R. hip. +ttp., other - +pain w/ ROM of R. hip. Neurologic: alert, motor strength/tone normal, sensory intact, responsive, speech normal, no focal defects Psychiatric: mood/affect normal, no suicidal/homicidal ideation Skin: no rash, other - Ecchymosis (yellow) overlying R. hip. Medical Decision Making Diagnostic Impression: Primary Impression: Pubic ramus fracture ER Course This patient has a right superior pubic rami fracture. Patient has a previous hip replacement in the right hip and the hardware is intact. There is no evidence of any other injuries. I did discuss pain management and admission to the hospital with the patient and her daughter. However, the daughter and the patient would rather manage at home and do not want to risk developing a hospital-acquired infection. The patient was able to follow-up closely with her primary care physician. Patient is comfortable and less walking. I feel that this is an appropriate plan. Patient is given close return precautions and follow-up instructions. Laboratory Tests Test 09/12/19 14:35 09/12/19 16:15 Urine Color Pale yellow Urine Appearance Clear Urine pH 5 (4.5-8.0) Urine Specific [place] 1.005 (1.005-1.035) Urine Protein Negative (NEGATIVE) Urine Glucose (UA) Negative (NEGATIVE) Urine Ketones Negative (NEGATIVE) Urine Blood Negative (NEGATIVE) Urine Nitrite Negative (NEGATIVE) Urine Bilirubin Negative (NEGATIVE) Urine Urobilinogen Normal MG/DL (0.0-1.0) Urine Leukocyte Esterase Negative (NEGATIVE) White Blood Count 6.3 K/UL (4.8-10.8) Red Blood Count 4.33 M/UL (4.20-5.40) Hemoglobin 11.9 G/DL (12.0-16.0) L Hematocrit 37.6 % (37.0-47.0) Mean Corpuscular Volume 87 FL (80-99) Mean Corpuscular Hemoglobin 27.5 PG (27.0-31.0) Mean Corpuscular Hemoglobin Concent 31.7 G/DL (32.0-36.0) L Red Cell Distribution Width 15.1 % (11.6-14.8) H Platelet Count 306 K/UL (150-450) Mean Platelet Volume 6.5 FL (6.5-10.1) Neutrophils (%) (Auto) 61.2 % (45.0-75.0) Lymphocytes (%) (Auto) 28.4 % (20.0-45.0) Monocytes (%) (Auto) 8.4 % (1.0-10.0) Eosinophils (%) (Auto) 1.1 % (0.0-3.0) Basophils (%) (Auto) 0.9 % (0.0-2.0) Sodium Level 147 MMOL/L (136-145) H Potassium Level 4.3 MMOL/L (3.5-5.1) Chloride Level 108 MMOL/L (98-107) H Carbon Dioxide Level 24 MMOL/L (21-32) Anion Gap 16 mmol/L (5-15) H Blood Urea Nitrogen 22 mg/dL (7-18) H Creatinine 1.0 MG/DL (0.55-1.30) Estimate Glomerular Filtration Rate 52.7 mL/min (>60) Glucose Level 79 MG/DL (74-106) Calcium Level 9.3 MG/DL (8.5-10.1) Total Bilirubin 0.6 MG/DL (0.2-1.0) Aspartate Amino Transferase (AST) 17 U/L (15-37) Alanine Aminotransferase (ALT) 26 U/L (12-78) Alkaline Phosphatase 158 U/L (46-116) H Troponin I 0.006 ng/mL (0.000-0.056) Total Protein 7.4 G/DL (6.4-8.2) Albumin 3.4 G/DL (3.4-5.0) Globulin 4.0 g/dL Albumin/Globulin Ratio 0.9 (1.0-2.7) L Laboratory Tests Test 09/12/19 14:35 Urine Color Pale yellow Urine Appearance Clear Urine pH 5 (4.5-8.0) Urine Specific [place] 1.005 (1.005-1.035) Urine Protein Negative (NEGATIVE) Urine Glucose (UA) Negative (NEGATIVE) Urine Ketones Negative (NEGATIVE) Urine Blood Negative (NEGATIVE) Urine Nitrite Negative (NEGATIVE) Urine Bilirubin Negative (NEGATIVE) Urine Urobilinogen Normal MG/DL (0.0-1.0) Urine Leukocyte Esterase Negative (NEGATIVE) EKG Diagnostic Results Rate: normal Rhythm: NSR ST Segments: no acute changes Rhythm Strip Diag. Results EP Interpretation: yes Rate: 60's Rhythm: NSR, no PVC's, no ectopy Other X-Ray Diagnostic Results Other X-Ray Diagnostic Results : X-Ray ordered: Bilateral hip, pelvis, Bilateral femur # of Views/Limited Vs Complete: Complete Indication: Pain EP Interpretation: Yes Interpretation: other - R. superior pubic rami fracture. Impression: Other - Pubic rami fx. No other fx's identified. See Reports in EMR. Electronically Signed by: Anaya Sanchez DO Last Vital Signs Date Time Temp Pulse Resp B/P (MAP) Pulse Ox O2 Delivery O2 Flow Rate FiO2 09/12/19 13:20 98.1 81 13 132/69 98 Room Air Status: improved Disposition: HOME, SELF-CARE Condition: Improved Scripts Acetaminophen With Codeine (T#3) (TYLENOL #3 TAB*) Y Tab 1 TAB ORAL Q8H PRN for For Pain, #20 TAB Prov: Anaya Sanchez DO 09/12/19 Anaya Sanchez DO Sep 12, 2019 14:46
[2019-09-12 14:56] LABS: APPEARANCE,URINE CLEAR; BILIRUBIN, URINE NEGATIVE (NEGATIVE); COLOR,URINE PALE YELLOW; GLUCOSE, URINE (UA) NEGATIVE (NEGATIVE); KETONES,URINE NEGATIVE (NEGATIVE); LEUKOCYTE ESTERASE ,URINE NEGATIVE (NEGATIVE); NITRITE,URINE NEGATIVE (NEGATIVE); PH,URINE 5 (4.5-8.0); PROTEIN,URINE NEGATIVE (NEGATIVE); UROBILINOGEN,URINE NORMAL MG/DL (0.0-1.0)
--- NOTE | 2019-09-12 15:35 | NUR ---
ED Nurse Note: IV ACCESS ESTABLISHED; PATENT AND INTACT. BLOOD SPECIMEN SENT TO LAB
--- NOTE | 2019-09-12 15:58 | Diagnostic Imaging Report ---
Indications: Pain, status post fall one day ago Technique: Two views of the left femur Comparison: None Findings: No acute fractures. No dislocations. The joint spaces are preserved and there is a Pierson catheter noted. The bones are osteoporotic Impression: Osteoporosis No acute bony trauma
--- NOTE | 2019-09-12 16:00 | Diagnostic Imaging Report ---
Indications: Pain, status post fall one day ago Technique: Two views of the right femur Comparison: No comparison plain radiography. There are some comparison intraoperative images from October 2018 Findings: There is a nondisplaced fracture of the right superior pubic ramus, best appreciated on the lateral femur view. Surgical hardware is seen reducing old healed right hip intertrochanteric fracture. There is surrounding heterotopic ossification. The bones are osteoporotic. No acute femoral fracture. The hardware is intact. Impression: Nondisplaced superior pubic ramus fracture-see separate pelvis/hip radiograph report Negative for evidence of femur fracture Postsurgical and posttraumatic changes as described
--- NOTE | 2019-09-12 16:03 | Diagnostic Imaging Report ---
Indication: Pain, status post fall Technique: One view the pelvis, 2 views of both hips Comparison: Postsurgical radiograph dated 10/16/2018 Findings: There is a nondisplaced fracture of the right superior pubic ramus no other acute fractures. No dislocations. The joint spaces are preserved. Again demonstrated is surgical hardware reducing previously demonstrated now completely healed intertrochanteric fracture. There is considerable heterotopic new bone surrounding the proximal femur. No evidence of left hip fracture. There is a Pierson catheter Impression: Positive for right superior pubic ramus fracture Postsurgical and posttraumatic changes as described Findings discussed by phone with Dr. Suazo in the emergency room at the time of interpretation
[2019-09-12] MEDS ORDERED: ACETAMINOPHEN-1 EAC1 ORAL (16:27)
[2019-09-12 16:34] LABS: BASOPHILS % (AUTO) 0.9 % (0.0-2.0); EOSINOPHILS % (AUTO) 1.1 % (0.0-3.0); HEMATOCRIT 37.6 % (37.0-47.0); HEMOGLOBIN 11.9 G/DL (12.0-16.0); LYMPHOCYTES % (AUTO) 28.4 % (20.0-45.0); MEAN CORPUSCULAR VOLUME 87 FL (80-99); MONOCYTES % (AUTO) 8.4 % (1.0-10.0); NEUTROPHILS % (AUTO) 61.2 % (45.0-75.0); PLATELET COUNT 306 K/UL (150-450); RED BLOOD COUNT 4.33 M/UL (4.20-5.40); RED CELL DISTRIBUTION WIDTH 15.1 % (11.6-14.8); WHITE BLOOD COUNT 6.3 K/UL (4.8-10.8)
[2019-09-12 16:39] LABS: ANION GAP 16 mmol/L (5-15); BLOOD UREA NITROGEN 22 mg/dL (7-18); CALCIUM 9.3 MG/DL (8.5-10.1); CARBON DIOXIDE 24 MMOL/L (21-32); CHLORIDE 108 MMOL/L (98-107); POTASSIUM 4.3 MMOL/L (3.5-5.1); SODIUM 147 MMOL/L (136-145)
[2019-09-12 16:43] LABS: ALANINE AMINOTRANSFERASE 26 U/L (12-78); ALBUMIN 3.4 G/DL (3.4-5.0); ALBUMIN/GLOBULIN RATIO 0.9 (1.0-2.7); ALKALINE PHOSPHATASE 158 U/L (46-116); ASPARTATE AMINO TRANSFERASE 17 U/L (15-37); BILIRUBIN,TOTAL 0.6 MG/DL (0.2-1.0)
[2019-09-12 17:10] VITALS: BP 127/69
--- NOTE | 2019-09-12 17:11 | NUR ---
ER DISCHARGE NOTE: Patient is cleared to be discharged per ERMD, pt is aox4, on room air, with stable vital signs. pt was given dc and prescription instructions, pt was able to verbalize understanding, pt id band and iv site removed without complications. pt dc on wheel chair pt took all belongings.
== END 2019-09-12 17:11 | disposition home or self-care (01) ==
LOC: EMR 14:31
DX: S32.511A Fracture of superior rim of right pubis, initial encounter for closed fracture (principal); I10 Essential (primary) hypertension; W01.0XXA Fall on same level from slipping, tripping and stumbling without subsequent striking against object, initial encounter; Y93.9 Activity, unspecified; Y92.9 Unspecified place or not applicable; Z96.641 Presence of right artificial hip joint
CPT/HCPCS: 36415; 73521; 73552; 80053; 81003; 84484; 85025; 93005; Z7502; 99284